=== PATIENT | female | born 1990 | race Caucasian/White ===

== ENCOUNTER 2017-02-16 05:30 | Inpatient (IN) ==
--- OUTSIDE RECORDS SUMMARY | 2017-02-16 05:38 | External Medical Summary ---
:1990 Author Organization eClinicalWorks Care Team Providers Name Role Phone Nia Fong Provider Role Unavailable Allergies No Known Allergies Problems No Known Problems Medications No Known Medications Results No Known Results Summary Purpose eClinicalWorks Submission
--- OUTSIDE RECORDS SUMMARY | 2017-02-16 05:38 | External Medical Summary | Referral Summary ---
:1990 Author Care Team Providers Name Role Phone Gayla Vaz Primary Care Physician Encounter [facility] [id number] Date(s): 08/18/14 - 08/18/14 Via [facility]ASMIN [place], [place] [facility] [address] [place]ao [place] [address] Discharge Diagnosis: Pelvic pain Discharge Disposition: Home or Self Care Attending Physician: Trupti Escoto APRN Admitting Physician: Trupti Escoto APRN Vital Signs Most recent to oldest [Reference Range]: 1 Temperature Tympanic [36.6-38.1 degC] 37.0 degC (08/18/14 11:36 AM) Peripheral Pulse Rate [60-100 bpm] 80 bpm (08/18/14 11:36 AM) Blood Pressure [90-140/60-90 mmHg] 118/70 mmHg (08/18/14 11:36 AM) Problem List Condition Effective Dates Status Health Status Informant ADD(Confirmed) Active Anxiety(Confirmed) Active Depression(Confirmed) Active Allergies, Adverse Reactions, Alerts No Known Medication Allergies Medications No Known Medications Results No data available for this section Immunizations Vaccine Date Refusal Reason influenza virus vaccine, live 02/03/13 Procedures No data available for this section Social History Social History Type Response Smoking Status Current every day smoker Assessment and Plan Extracted from: Title: Ambulatory Patient Education Author: Trupti Escoto APRN Date: Family Medicine Pelvic Pain, Female Female pelvic pain can be caused by many different things and start from a variety of places. Pelvic pain refers to pain that is located in the lower half of the abdomen and between your hips. The pain may occur over a short period of time (acute ) or may be reoccurring (chronic ) . The cause of pelvic pain may be related to disorders affecting the female reproductive organs (gynecologic ), but it may also be related to the bladder, kidney stones, an intestinal complication, or muscle or skeletal problems. Getting help right away for pelvic pain is important, especially if there has been severe, soumya p, or a sudden onset of unusual pain. It is also important to get help right away because some types of pelvic pain can be life threatening. CAUSES Below are only some of the causes of pelvic pain. The causes of pelvic pain can be in one of several categories. Gynecologic. Pelvic inflammatory disease. Sexually transmitted infection. Ovarian cyst or a twisted ovarian ligament (ovarian torsion ). Uterine lining that grows outside the uterus (endometriosis ). Fibroids, cysts, or tumors. Ovulation. . that occurs outside the uterus (ectopic ). Miscarriage. Labor. Abruption of the placenta or ruptured uterus. Infection. Uterine infection (endometritis ). Bladder infection. Diverticulitis. Miscarriage related to a uterine infection (septic ). Bladder. Inflammation of the bladder (cystitis ). Kidney stone(s). Gastrointenstinal. Constipation. Diverticulitis. Neurologic. Trauma. Feeling pelvic pain because of mental or emotional causes (psychosomatic ). Cancers of the bowel or pelvis. EVALUATION Your caregiver will want to take a careful history of your concerns. This includes recent changes in your health, a careful gynecologic history of your periods (menses ), and a sexual history. Obtaining your family history and medical history is also important. Your caregiver may suggest a pelvic exam. A pelvic exam will help identify the location and severity of the pain. It also helps in the evaluat ion of which organ system may be involved. In order to identify the cause of the pelvic pain and be properly treated, your caregiver may order tests. These tests may include: A test. Pelvic ultrasonography. An X-ray exam of the abdomen. A urinalysis or evaluation of vaginal discharge. Blood tests. HOME CARE INSTRUCTIONS Only take qxfb-lvn-nueovog or prescription medicines for pain, discomfort , or fever as directed by your caregiver. Rest as directed by your caregiver. Eat a balanced diet. Drink enough fluids to make your urine clear or pale yellow, or as directed. Avoid sexual intercourse if it causes pain. Apply warm or cold compresses to the lower abdomen depending on which one helps the pain. Avoid stressful situations. Keep a journal of your pelvic pain. Write down when it started, where the pain is located, and if there are things that seem to be associated with the pain, such as food or your menstrual cycle. Follow up with your caregiver as directed. SEEK MEDICAL CARE IF: Your medicine does not help your pain. You have abnormal vaginal discharge. SEEK IMMEDIATE MEDICAL CARE IF: You have heavy bleeding from the vagina. Your pelvic pain increases. You feel lightheaded or faint. You have chills. You have pain with urination or blood in your urine. You have uncontrolled diarrhea or vomiting. You have a fever or persistent symptoms for more than 3 days. You have a fever and your symptoms suddenly get worse. You are being physically or sexually abused. MAKE SURE YOU: Understand these instructions. Will watch your condition. Will get help if you are not doing well or get worse. Document Released: 03/20/2005 Document Revised: 10/22/2012 Document Reviewed: 08/12/2012 [facility] Patient Information 2014 [email or web address]. No follow up information was provided. Extracted from: Title: Office Visit Note Author: Trupti Escoto APRN Date: 08/18/14 Assessment/Plan Pelvic pain pelvic sono for further eval. Orders: US Transvaginal/Pelvic Limited
--- OUTSIDE RECORDS SUMMARY | 2017-02-16 05:38 | External Medical Summary ---
:1990 Author Organization eClinicalWorks Care Team Providers Name Role Phone Alvin An Provider Role Unavailable Allergies, Adverse Reactions, Alerts Substance Reaction Event Type N.K.D.A. Info Not Available Non Drug Allergy Problems Problem Type Condition Code Onset Dates Condition Status Assessment Encounter for dental examination and Z01.20 Active cleaning without abnormal findings Medications Medication Code System Code Instructions Start End Date Status Dosage Date Augmentin [facility] 34749-59 875-125 MG Jan 16, Jan 30, tablet 86-12 Orally Twice a 2015 2015 day Fluoxetine HCl [facility] 31276-76 20 MG Orally Jan 16, capsule 56-01 Once a day 2015 in the morning Procedures Procedure Coding System Code Date INTRAORL - CMPL SERIES CODE 15905 CPT-4 D0210 Jan 31, 2016 COMP ORAL EVALUATION - NEW/EST PT CPT-4 D0150 Jan 31, 2016 Results No Known Results Summary Purpose eClinicalWorks Submission
--- OUTSIDE RECORDS SUMMARY | 2017-02-16 05:38 | External Medical Summary | Continuity of Care Document ---
:1989 Author Organization [facility] Address [address] [place], [place] [id number] Phone Care Team Providers Name Role Phone [facility] Unavailable Unavailable Allergies, Adverse Reactions, Alerts Substance Reaction Severity Status No Known Drug Allergies Unknown Active Medications Medication Instructions Dosage Effective Dates Status Comments (start - stop) Vitamin take 1 tablet by Not Available - Active tablet oral route every day Problems Condition Effective Dates (start - stop) Clinical Status Supervision of other high risk - pregnancies, third trimester 28 weeks gestation of - Recurrent loss Recurrent loss Encounter for test, result - positive Encounter for test, result positive Nicotine dependence, cigarettes, uncomplicated Recurrent loss Pap Smear Screening, Cervix - Encounter for test, result - negative 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 Complete or unsp spontaneous without complication Supervision of other high risk - pregnancies, first trimester Preg care for patient w recurrent preg - loss, first trimester Previous Low Transverse - Pap Smear Screening, Cervix - 10 weeks gestation of - Supervision of other high risk - pregnancies, first trimester 13 weeks gestation of - Supervision of other high risk - pregnancies, first trimester Previous Low Transverse - 13 weeks gestation of - Supervision of other high risk - pregnancies, second trimester 20 weeks gestation of - Supervision of other high risk - pregnancies, second trimester Previous Low Transverse - 17 weeks gestation of - Supervision of other high risk - pregnancies, third trimester 31 weeks gestation of - Preg care for patient curtis recbety preg - loss, second trimester Previous Low Transverse - 20 weeks gestation of - Encounter for screening of - mother Previous Low Transverse - 24 weeks gestation of - Depression Active Anxiety Disorder Active Procedures Procedure Date OB Visit No Charge Glucose test Hemoglobin count, colorimetric Hematocrit blood count Venpnctr fngr/heel/ear stick routne Results Test Name Date and Time Measure Units Reference Range Abnormal Flag Comments Panel Description: Glucose [Mass/volume] in Serum or Plasma --1 hour post 50 g glucose PO GLUCOSE, GESTATIONAL 75 mg/dL <140 N Test performed at [email or web address] SCREEN (50G)-140 15:30:00 DIAGNOSTICS [id number] [place] [address]Ybpdbzay: SABRINA CLAYTON DO,MPH Panel Description: HEMOGLOBIN + HEMATOCRIT HEMOGLOBIN 15:30:00 11.6 g/dL 11.7-15.5 L HEMATOCRIT 15:30:00 34.6 % 35.0-45.0 L Test performed at [facility] [id number] [place] [address]Lawirddt: SABRINA CLAYTON DO,MPH Advance Directives Directive Yes / No Effective Date File Name Unknown Encounters Encounter Practice Location Reason(s) Diagnoses Date Provider Care Description For Visit Team Members Ashely Gao Supervision of [facility] other high risk 7-[address], pregnancies, third 7 Medical [address] Box [email or web address] weeks Center 1522, gestation of [place] Ortega, 120, [place], [place], [id number], [place], [place] [id number] tel: , [place]. [id number] tel: [phone] Ashely Gao Supervision of Lalo-2 [facility] other high risk 8-201 [place]. [facility] [place], pregnancies, third 7 Medical PO Box [email or web address] weeks Center 1522, gestation of [place] Ortega, 120, [place], [place], [id number], [place] [id number] tel:+ , [place]. tel: [phone] Ashely Gao Previous Low Amilcar-2 [facility] Transverse 9-201 [place]. 700 [facility] [place], [id number] weeks 7 Medical PO Box gestation of Center 1522, [place] Ortega, 120, [place], [place], [id number], [place], [place] [id number] tel: , [place]. tel: [phone] Ashely Gao Supervision of Amilcar-0 [facility] other high risk 1-201 [place]. 700 [facility] [place], pregnancies, second 7 Medical PO Box [id number] weeks Center 1522, gestation of [place] Ortega, 120, [place], [place], [id number], [place] [id number] tel:+ , [place]. tel: [phone] Ashely Gao Preg care for Amilcar-0 [facility] Ultrasound patient w recur 1-201 [place]. 700 [facility] [place], preg loss, second 7 Medical PO Box trimesterPrevious Center 1522, Low Transverse [place] Orte[place], [id number] weeks 120, [place], gestation of [place], , pregnancyEncounter [place], [place] for tel: screening of mother , [place]. tel: [phone] Ashely Gao Supervision of May-1 [facility] other high risk 1-201 [place]. 700 [facility] [place], pregnancies, second 7 Medical PO Box trimesterPrevious Center 1522, Low Transverse [place] Ortega, [id number] weeks 120, [place], gestation of [place], , [place] [id number] tel: , [place]. tel: [phone] Ashely Gao Supervision of Apr-1 [facility] other high risk 3-201 [place]. 700 [facility] [place], pregnancies, first 7 Medical PO Box [email or web address] weeks Center 1522, gestation of [place] Ortega, 120, [place], [place], [id number], [place], [place] [id number] tel: , [place]. tel: [phone] Ashely Gao Supervision of Apr-1 [facility] Ultrasound other high risk -201 [place]. 700 [facility], pregnancies, first 7 Medical PO Box trimesterPrevious Center 1522, Low Transverse [place] Ortega, C-[id number] weeks 120, [place], gestation of [place], , [place], [place] tel:+ , [place]. tel: [phone] Ashely Gao Supervision of Mar-2 [facility] other high risk - [place]. 700 [facility], pregnancies, first 7 Medical PO Box trimesterPreg care Center 1522, for patient w [place] Ortega, recurrent preg 120, [place], loss, first [place], , trimesterPrevious [place], [place] Low Transverse tel: C-SectionPap Smear , [place]. Screening, [id number] tel:+06-06 weeks gestation of [phone] [facility] [place] Secondary Mar-0 [facility] amenorrhea 9- [place]. 700 [facility], Medical PO Box [place] 1522, [place] Ortega, 120, [place], [place], [id number], [place] [id number] tel: , [place]. tel: [phone] Ashely Gao Secondary Feb-2 [facility] amenorrhea 3-201 [place]. 700 [facility], Medical PO Box Center 1522, [place] Orte[place], 120, [place], [place], [id number], [place], [place] [id number] tel: , [place]. tel: [phone] Ashely Gao Secondary Feb-1 [facility] amenorrhea 7-201 [place]. 700 [facility], Medical PO Box Center 1522, [place] Ortega, 120, [place], [place], [id number], [place], [place] [id number] tel: , [place]. tel: [phone] Ashely Gao Complete or unsp Sahil-1 [facility] spontaneous 3-201 [place]. 700 [facility] [place], without 7 Medical PO Box complication Center 1522, , [place] Damon, 120, [place], [place], [id number], [place] [id number] tel:+ , [place]. tel: [phone] [facility] [place] Recurrent May- [place] [facility] [place] loss 2-201 [place], 7 700 PO Box Medical 1522, Center [place], , [place], 120, [id number], [place], [place], tel:+ [phone] , [place]. tel: [phone] Ashely Gao Recurrent May- [place] [facility] lossRecurrent 1- [place]. [facility] [place], 7 700 PO Box lossEncounter for Medical 1522, test, [facility], result [place] Ortega, positiveEncounter 120, [id number], for test, [place], result positive [place], tel:[phone] , [place]. tel: [phone] [facility] Nicotine Mar- [facility] dependence, 2- [place]. 700 [facility] [place], cigarettes, 6 Medical PO Box uncomplicatedRecurr Center 1522, ent , [place] Damon, lossPap Smear 120, [place], Screening, [place], [id number], CervixEncounter for [place], [place] test, tel: result negative , [place]. tel: [phone] Family History Family Member Diagnosis Age At Onset Paternal Grandfather Cardiovascular Disease Father Cardiovascular Disease Immunizations Vaccine Date Status Comments Unknown Payers Payer name Insurance type Covered constitution party ID Authorization(s) Unknown Social History Type Description Quantity Date Captured Alcohol Use Details No Caffeine Use Details Unknown Tobacco Use Status Smoking Status Current every day smoker Vital Signs Date / Height Weight BMI Pulse Blood Temperature Respiratory Body Head BMI Time: Rate Pressure Rate Surface Circumference percentile Area 4 2:02 kg/m PM eter (2) 173.40 29.4 105/68 -2017 lbs 8 mm[Hg] 2:07 kg/m PM eter (2) Chief Complaint And Reason For Visit Unknown Chief Complaint And Reason For Visit Reason For Referral Reason For Referral Unknown Plan Of Care Date Type Action Status Goal Tobacco cessation counseling completed Goal Tobacco cessation counseling completed Appointment Pamella Grider BOOKED [place] Pamella [place] [facility] [place] Future Order: Lab Order Pap Smear With HPV Reflex If Ordered ASCUS ([id number]) Future Order: Radiology Order Nuchal Translucency ([id number]) Ordered Future Order: Radiology Order Complete OB Ultrasound > 14 Ordered Weeks ([id number]) Date Type Problem Goal Intervention Status Start Date Unknown. History Of Present Illness Encounter Date Complaint History Of Present Illness This patient has no known history of present illness Functional Status Encounter Date Functional Assessment Cognitive Assessment Unknown Medications Administered Medication Instructions Dosage Effective Dates (start - stop) Status Comments Drug Treatment Unknown Instructions Date Instruction Additional Information HIV and other routine tests risk factors identified by history anticipated course of care nutrition and weight gain counseling, special diet toxoplasmosis precautions (cats / raw meat) sexual activity exercise indications for ultrasound influenza vaccine environmental / work hazards travel tobacco (ask, advise, assess, assist and arrange) use of any medications (including supplements, vitamins, herbs, OTC drugs) smoking counseling domestic violence seat belt use childbirth classes / hospital facilities hospital registration genetic testing
--- OUTSIDE RECORDS SUMMARY | 2017-02-16 05:38 | External Medical Summary | Continuity of Care Document ---
:1989 Author Organization [facility] Address [address] [place], [place] [id number] Phone Care Team Providers Name Role Phone [facility] Unavailable Unavailable Allergies, Adverse Reactions, Alerts Substance Reaction Severity Status No Known Drug Allergies Unknown Active Medications Medication Instructions Dosage Effective Dates Status Comments (start - stop) Vitamin take 1 tablet by Not Available - Active tablet oral route every day Problems Condition Effective Dates (start - stop) Clinical Status Previous Low Transverse - 24 weeks gestation of - Recurrent loss Recurrent [...] first trimester 13 weeks gestation of - Previous Low Transverse - Supervision of other high risk - pregnancies, first trimester 13 weeks gestation of - Supervision of other high risk - pregnancies, second trimester 17 weeks gestation of - Previous Low Transverse - Supervision of other high risk - pregnancies, second trimester 20 weeks gestation of - Previous Low Transverse - 20 weeks gestation of - Preg care for patient w recur preg - loss, second trimester Encounter for screening of - mother Depression Active Anxiety Disorder Active Procedures Procedure Date OB Visit No Charge Results Test Name Date and Time Measure Units Reference Range Abnormal Flag Comments Unknown Advance Directives Directive Yes / No Effective Date File Name Unknown Encounters Encounter Practice Location Reason(s) Diagnoses Date Provider Care Description For Visit Team Members Ashely Gao Previous Low Amilcar-2 [facility] Transverse 9-201 [place]. 700 [facility] [place], [id number] weeks 7 Medical PO Box gestation of [place] 1522, [place]te[place], 120, [place], [place], [id number], [place], [place] [id number] tel:[phone] , [place]. tel:[phone] Ashely Gao Supervision of Amilcar-0 [facility] other high risk 1-201 [place]. 700 [facility] [place], pregnancies, second 7 Medical PO Box [id number] weeks Center 1522, gestation of [place] Ortega, 120, [place], [place], [id number], [place], [place] [id number] tel:[phone] , [place]. tel: [phone] Ashely aGo Previous Low Amilcar-0 [facility] Ultrasound Transverse 1-201 [place]. 700 [facility] [place], C-[id number] weeks 7 Medical PO Box gestation of [place] 1522, pregnancyPreg care [place] Orte[place], for patient w recur 120, [place], preg loss, second [place], , trimesterEncounter [place], [place] for tel:+[phone] screening of mother , [place]. tel:[phone] Ashely Gao Supervision of September- [facility] other high risk 1-201 [place]. 700 [facility], pregnancies, second 7 Medical PO Box [email or web address] weeks Center 1522, gestation of [place] Ortega, pregnancyPrevious 120, [place], Low Transverse [place], [id number], [place], [place] [id number] tel:[phone] , [place]. tel: [phone] Ashely Gao Supervision of Apr-1 [facility] other high risk 3-201 [place]. 700 [facility], pregnancies, first 7 Medical PO Box [id number] weeks Center 1522, gestation of [place] Ortega, 120, [place], [place], [id number], [place], [place] [id number] tel: , . tel: [phone] Ashely Gao Supervision of Apr-1 [facility] Ultrasound other high risk 3-201 [place]. 700 [facility], pregnancies, first 7 Medical PO Box [id number] weeks Center 1522, gestation of [place] Ortega, pregnancyPrevious 120, [place], Low Transverse [place], , [place], [place] [id number] tel: , . tel: [phone] Ashely Gao Supervision of Mar-2 [facility] other high risk 3-201 [place]. 700 [facility], pregnancies, first 7 Medical PO Box trimesterPreg care Center 1522, for patient w [place] Ortega, recurrent preg 120, [place], loss, first [place], , trimesterPrevious [place], [place] Low Transverse [id number] tel: C-SectionPap Smear , [place]. Screening, [id number] tel: weeks gestation of [phone] [facility] [place] Secondary Mar-0 [facility] amenorrhea 9-201 [place]. 700 [facility], Medical PO Box Center 1522, [place] Orte[place], 120, [place], [place], [id number], [place], [place] [id number] tel: , . tel: [phone] [facility] [place] Secondary Feb-2 [facility] amenorrhea 3-201 [place]. 700 [facility], Medical PO Box Center 1522, [place] Ortega, 120, [place], [place], [id number], [place], [place] [id number] tel: , . tel: [phone] [facility] [place] Secondary Feb-1 [facility] amenorrhea 7-201 [place]. 700 [facility], Medical PO Box Center 1522, Dr, [place] Damon, 120, [place], [place], [id number], [place], [place] [id number] tel: , [place]. tel: [phone] [facility] Complete or unsp May-1 [facility] spontaneous 3-201 [place]. 700 [facility] [place], without 7 Medical PO Box complication Center 1522, , [place] Damon, 120, [place], [place], [id number], [place], [place] [id number] tel:+ , [place]. tel: [phone] [facility] Recurrent Sahil-1 [place] loss 2-201 [place]. [facility] [place], 7 700 PO Box Medical 1522, Center Dr Marisol, [place] HERNANDE[place], 120, [id number], [place], [place], tel:[phone] , [place]. tel: [phone] Ashely Gao Recurrent May- [place] In Womens lossRecurrent 1-201 [place]. [facility] [place], 7 700 PO Box lossEncounter for Medical 1522, [facility] [place], positiveEncounter 120, [id number], for test, [place], result positive [place], tel:[phone] , [place]. tel: [phone] [facility] [place] Nicotine Nov-2 [facility] dependence, 2-201 [place]. 700 [facility] [place], cigarettes, 6 Medical PO Box uncomplicatedRecurr Center 1522, ent [place] Ortega, lossPap Smear 120, [place], Screening, [place], [id number], CervixEncounter for [place], [place] test, [id number] tel: result negative , [place]. tel: [phone] Family History Family Member Diagnosis Age At Onset Paternal Grandfather Cardiovascular Disease Father Cardiovascular Disease Immunizations Vaccine Date Status Comments Unknown Payers Payer name Insurance type Covered libertarian ID Authorization(s) [employer] [place] - Medicaid MC [id number] Social History Type Description Quantity Date Captured Alcohol Use Details No Caffeine Use Details Unknown Tobacco Use Status Smoking Status Current every day smoker Vital Signs Date / Height Weight BMI Pulse Blood Temperature Respiratory Body Head BMI Time: Rate Pressure Rate Surface Circumference percentile Area 169.00 28.7 110/69 2017 lbs 4 mm[Hg] 2:35 kg/m PM eter (2) Chief Complaint And Reason For Visit Unknown Chief Complaint And Reason For Visit Reason For Referral Reason For Referral Unknown Plan Of Care Date Type Action Status Goal Tobacco cessation counseling completed Goal Tobacco cessation counseling completed Appointment Pamella Grider BOOKED Future Order: Lab Order Pap Smear With HPV Reflex If Ordered ASCUS ([id number]) Future Order: Radiology Order Nuchal Translucency ([id number]) Ordered Future Order: Radiology Order Complete OB Ultrasound > 14 Ordered Weeks ([id number]) Date Type Problem Goal Intervention Status Start [...]
--- OUTSIDE RECORDS SUMMARY | 2017-02-16 05:39 | External Medical Summary ---
:1990 Author Organization eClinicalWorks Care Team Providers Name Role Phone Hetal, Nia Provider Role Unavailable Allergies, Adverse Reactions, Alerts Substance Reaction Event Type N.K.D.A. Info Not Available Non Drug Allergy Problems Problem Type Condition Code Onset Dates Condition Status Assessment Positive test Z32.01 Active Assessment Spotting N92.0 Active Assessment Dysmenorrhea N94.6 Active Assessment Breast lump N63 Active Medications Medication Code System Code Instructions Start Date End Date Status Dosage [facility] [address]5214-860 Orally daily not defined Vitamins Plus 6-01 Procedures Procedure Coding System Code Date OFFICE VISIT, LONG LINE TEAMSTER-LOW COMPLEXITY (30 MIN.) CPT-4 93729 Dec 09, 2015 TEST, IN HOUSE CPT-4 88880 Dec 09, 2015 Vital Signs Date/Time: Dec 09, 2015 Temperature 99.0 F Height 63 in Weight 130 lbs Blood Pressure Diastolic 64 mm Hg Blood Pressure Systolic 102 mm Hg Cardiac Monitoring Heart Rate 70 /min BMI 23.03 Index Oximetry 98 % Respiratory Rate 16 /min Results No Known Results Summary Purpose eClinicalWorks Submission
--- OUTSIDE RECORDS SUMMARY | 2017-02-16 05:39 | External Medical Summary | Continuity of Care Document ---
:1989 Author Organization [facility] Address [address] [place], [place] [id number] Phone Care Team Providers Name Role Phone [facility] Unavailable Unavailable Allergies, Adverse Reactions, Alerts Substance Reaction Severity Status No Known Drug Allergies Unknown Active Medications Medication Instructions Dosage Effective Dates Status Comments (start - stop) Vitamin take 1 tablet by Not Available - Active tablet oral route every day Problems Condition Effective Dates (start - stop) Clinical Status Recurrent loss Recurrent loss Encounter for test, [...] third trimester 28 weeks gestation of - Preg care for patient w recur preg - loss, second trimester Previous Low Transverse - 20 weeks gestation of - Encounter for screening of - mother Previous Low Transverse - 24 weeks gestation of - Depression Active Anxiety Disorder Active Procedures Procedure Date Unknown Results Test Name Date and Time Measure Units Reference Range Abnormal Flag Comments Unknown Advance Directives Directive Yes / No Effective Date File Name Unknown Encounters Encounter Practice Location Reason(s) Diagnoses Date Provider Care Description For Visit Team Members Ashely Gao Supervision of Lalo-2 Gilles In Womens other high risk 8-201 [place]. 700 [facility] [place], pregnancies, third 7 Medical PO Box [id number] weeks Center 1522, gestation of Raymond Ortega, 120, [place], [place], , [place], [place] [id number] tel:+ , [place]. tel: [phone] Ashely Gao Lalo-2 Gilles In Womens 3-201 [place]. 700 [facility], 7 Medical PO Box Center 1522, Raymond Ortega, 120, [place], [place], , [place], [place] [id number] tel:+ , [place]. tel:[phone] Ashely Gao Previous Low Amilcar-2 Gilles In Womens Transverse 9-201 [place]. 700 [facility], [id number] weeks 7 Medical PO Box gestation of Center 1522, Raymond Ortega, 120, [place], [place], [id number], [place], [place] [id number] tel:+2 , [place]. tel:[phone] Ashely Gao Supervision of Amilcar-0 Gilles In Womens other high risk 1-201 [place]. 700 [facility] [place], pregnancies, second 7 Medical PO Box [id number] weeks Center 1522, gestation of Raymond Ortega, 120, [place], [place], , [place], [place] [id number] tel:+ , [place]. tel:[phone] Ashely Gao Preg care for Amilcar-0 Gilles In Womens Ultrasound patient w recur 1-201 [place]. 700 [facility] [place], preg loss, second 7 Medical PO Box trimesterPrevious Center 1522, Low Transverse Raymond Ortega, [id number] weeks 120, [place], gestation of [place], , pregnancyEncounter [place], [place] for [id number] tel:[phone] screening of mother , [place]. tel:[phone] Ashely Gao Supervision of May-1 Gilles In Womens other high risk 1-201 [place]. 700 [facility] [place], pregnancies, second 7 Medical PO Box trimesterPrevious Center 1522, Low Transverse Raymond Ortega, C-[id number] weeks 120, [place], gestation of [place], , [place], [place] [id number] tel:+[phone] , [place]. tel:[phone] Ashely Gao Supervision of Apr-1 Gilles In Womens other high risk 3-201 [place]. 700 [facility] [place], pregnancies, first 7 Medical PO Box [id number] weeks Center 1522, gestation of Raymond Ortega, 120, [place], [place], [id number], [place] [id number] tel:+ , [place]. tel:[phone] Ashely Gao Supervision of Apr-1 Gilles In Womens Ultrasound other high risk 3-201 [place]. 700 [facility] [place], pregnancies, first 7 Medical PO Box trimesterPrevious Center 1522, Low Transverse Raymond Ortega, C-[id number] weeks 120, [place], gestation of [place], , [place] [id number] tel:[phone] , [place]. tel: [phone] Ashely Gao Supervision of Mar-2 Gilles In Womens other high risk 3-201 [place]. 700 [facility] [place], pregnancies, first 7 Medical PO Box trimesterPreg care Center 1522, for patient w Raymond Ortega, recurrent preg 120, [place], loss, first [place], , trimesterPrevious [place], [place] Low Transverse [id number] tel:[phone] C-SectionPap Smear , [place]. Screening, [id number] tel:+31 weeks gestation of [phone] [facility] [place] Secondary Mar-0 Gilles In Womens amenorrhea 9-201 [place]. 700 [facility] [place], 7 Medical PO Box Center 1522, , Raymond Damon, 120, [place], [place], , [place], [place] tel:+ , [place]. tel: [phone] [facility] [place] Secondary Feb-2 Gilles In Womens amenorrhea 3-201 [place]. 700 [facility] [place], 7 Medical PO Box Center 1522, , Raymond Damon, 120, [place], [place], , [place], [place] tel:+ , [place]. tel: [phone] [facility] [place] Secondary Feb-1 Gilles In Womens amenorrhea 7-201 [place]. 700 [facility] [place], 7 Medical PO Box Center 1522, , Raymond Damon, 120, [place], [place], , [place], [place] tel: , [place]. tel: [phone] [facility] [place] Complete or unsp Sahil-1 Gilles In Womens spontaneous 3-201 [place]. 700 [facility] [place], without 7 Medical PO Box complication Center 1522, , Raymond Damon, 120, [place], [place], , [place], [place] tel: , [place]. tel: [phone] [facility] [place] Recurrent Sahil-1 [place] In Womens loss 2-201 [place]. [facility] [place], 7 700 PO Box Medical 1522, [address], Raymond HERNANDEZ, 120, , [place], [place], tel:[phone] , [place]. tel: [phone] [facility] [place] Recurrent Sahil-1 [place] In Womens lossRecurrent 1-201 [place]. [facility] [place], 7 700 PO Box lossEncounter for Medical 1522, test, Betty Damon, result , Raymond HERNANDEZ, positiveEncounter 120, , for test, [facility] result positive [place], tel:[phone] , [place]. tel: [phone] [facility] [place] Nicotine Nov-2 Gilles In Womens dependence, 2-201 [place]. 700 [facility] [place], cigarettes, 6 Medical PO [facility], ent Raymond Ortega, lossPap Smear 120, [place], Screening, [place], [id number], CervixEncounter for [place], [place] test, [id number] tel:+8 result negative , [place]. [id number] tel: [phone] Family History Family Member Diagnosis Age At Onset Paternal Grandfather Cardiovascular Disease Father Cardiovascular Disease Immunizations Vaccine Date Status Comments Unknown Payers Payer name Insurance type Covered republican ID Authorization(s) Unknown Social History Type Description Quantity Date Captured Unknown Vital Signs Date / Height Weight BMI Pulse Blood Temperature Respiratory Body Head BMI Time: Rate Pressure Rate Surface Circumference percentile Area Unknown Chief Complaint And Reason For Visit Unknown Chief Complaint And Reason For Visit Reason For Referral Reason For Referral Unknown Plan Of Care Date Type Action Status Goal Tobacco cessation counseling completed Goal Tobacco cessation counseling completed Appointment Pamella Grider BOOKED Future Order: Lab Order Pap Smear With HPV Reflex If Ordered ASCUS ([id number]) Future Order: Radiology Order Nuchal Translucency ([id number]) Ordered Future Order: Radiology Order Complete OB Ultrasound > 14 Ordered Weeks (30092) Date Type Problem Goal Intervention Status Start [...]
--- OUTSIDE RECORDS SUMMARY | 2017-02-16 05:39 | External Medical Summary ---
:1990 Author Organization eClinicalWorks Care Team Providers Name Role Phone Mindy Vizcaino Provider Role Unavailable Allergies No Known Allergies Problems Problem Type Condition Code Onset Dates Condition Status Assessment Missed period N92.6 Active Medications Medication Code System Code Instructions Start End Date Status Dosage Date Fluoxetine HCl [facility] 67068-43 20 MG Orally Jan 16 capsule 56-01 Once a day 2016 in the morning [facility] 24458-82 Orally daily not defined Vitamins Plus 16-01 Procedures Procedure Coding System Code Date HCG QUANTITATIVE CPT-4 41615 Feb 11, 2016 Results No Known Results Summary Purpose eClinicalWorks Submission
--- OUTSIDE RECORDS SUMMARY | 2017-02-16 05:39 | External Medical Summary | Referral Summary ---
:1989 Author Organization [facility] [place] [address] Care Team Providers Name Role Phone No PCP, States Primary Care Physician Encounter VC Date(s): 11/29/15 - 11/29/15 [facility] [place] [place] [id number] [place] Discharge Diagnosis: Hematoma of abdominal wall Discharge Disposition: 01-Home or Self Care Attending Physician: Shahab Helm MD Admitting Physician: Shahab Helm MD Vital Signs Most recent to oldest [Reference Range]: 1 Temperature Tympanic [36.6-38.1 degC] 36.9 degC (11/29/15 3:06 PM) Peripheral Pulse Rate [60-100 bpm] 88 bpm (11/29/15 3:06 PM) Blood Pressure [90-140/60-90 mmHg] 100/68 mmHg (11/29/15 3:06 PM) Problem List Condition Effective Dates Status Health Status Informant ADD(Confirmed) Active Anxiety(Confirmed) Active Depression(Confirmed) Active Current smoker(Confirmed) Active Allergies, Adverse Reactions, Alerts No Known Medication Allergies Medications CeleXA 40 mg oral tablet 40 mg 1 tabs, Oral, Daily, # 60 tabs, 0 Refill(s), Pharmacy: [facility], 1 tabs Oral Daily Start Date: 07/23/15 Status: Ordered Results Chemistry Most recent to oldest [Reference Range]: 1 U Beta hCG Ql Negative (11/29/15 12:00 AM) Immunizations Vaccine Date Refusal Reason influenza virus vaccine, live 02/03/13 Procedures No data available for this section Social History Social History Type Response Smoking Status Current every day smoker Assessment and Plan Extracted from: Title: Office Visit Note Author: Shahab Helm MD Date: 11/29/15 Assessment/Plan 1.Hematoma of abdominal wall Reassurance. No specific treatment needed. If it's helpful she may put some heat on the area. I toldher that the soreness should be gone in a week she may have a lump thatpersists for 3-4 weeks or even a longer periodif she has worsening pain or further problems she'll let us now. Ordered: Office Visit Level 3 Est 70885 Her request be to do a urine hCG test.
--- OUTSIDE RECORDS SUMMARY | 2017-02-16 05:39 | External Medical Summary ---
:1989 Author Organization eClinicalWorks Care Team Providers Name Role Phone Mindy Vizcaino Provider Role Unavailable Allergies, Adverse Reactions, Alerts Substance Reaction Event Type N.K.D.A. Info Not Available Non Drug Allergy Problems Problem Type Condition Code Onset Dates Condition Status Assessment Missed period N92.6 Active Assessment Encounter for test, result Z32.00 Active unknown Assessment Encounter for other general Z30.09 Active counseling and advice on contraception Medications Medication Code System Code Instructions Start End Date Status Dosage Date NDC 20747-21 Orally daily not defined Vitamins Plus 16-01 Fluoxetine HCl [facility] 63301-29 20 MG Orally Jan 12 capsule 56-01 Once a day 2015 in the morning Procedures Procedure Coding System Code Date OFFICE VISIT, EST-LOW COMPLEXITY (15 MIN.) CPT-4 46019 Feb 11, 2016 TEST, IN HOUSE CPT-4 61574 Feb 11, 2016 Vital Signs Date/Time: Feb 11, 2016 Temperature 98.7 F Height 63 in Weight 128 lbs Blood Pressure Diastolic 58 mm Hg Blood Pressure Systolic 102 mm Hg Cardiac Monitoring Heart Rate 90 /min BMI 22.67 Index Respiratory Rate 18 /min Results Name Result Date Reference Range Unit Abnormality Flag In House Test, Urine ---- Test, Urine negative [id number] Summary Purpose eClinicalWorks Submission
--- OUTSIDE RECORDS SUMMARY | 2017-02-16 05:39 | External Medical Summary | Continuity of Care Document ---
:1989 Author Organization [facility] [facility] Address [address] [place], [place] [id number] Phone Care Team Providers Name Role Phone [facility] Unavailable Unavailable Allergies, Adverse Reactions, Alerts Substance [...] loss Complete or unsp spontaneous without complication Preg care for patient w recurrent preg - loss, first trimester Supervision of other high risk - pregnancies, first trimester Previous Low Transverse - Pap [...] gestation of - Previous Low Transverse - Preg care for patient w recur preg - loss, second trimester Previous Low Transverse - 20 weeks gestation of - Encounter for screening of - mother Supervision of other high risk - pregnancies, second trimester 20 weeks gestation of - Supervision of other high risk - pregnancies, third trimester 28 weeks gestation of - Supervision of other high risk - pregnancies, third trimester 31 weeks gestation of - Previous Low Transverse - 24 weeks gestation of - Depression Active Anxiety Disorder Active Procedures Procedure Date Unknown Results Test Name Date and Time Measure Units Reference Range Abnormal Flag Comments Unknown Advance Directives Directive Yes / No Effective Date File Name Unknown Encounters Encounter Practice Location Reason(s) Diagnoses Date Provider Care Description For Visit Team Members Ashely Gao Supervision of Dec-1 Gilles In Womens other high risk 7-[address] [place]. 700 [facility] [place], pregnancies, third 7 Medical PO Box [id number] weeks Center 1522, gestation of Raymond Ortega, 120, [place], [place], [id number], [place], [place] [id number] tel:+ , [place]. tel: [phone] Ashely Gao Aug-0 Gilles In Womens 7-201 [place]. 700 [facility] [place], 7 Medical PO Box Center 1522, Raymond Ortega, 120, [place], [place], [id number], [place], [place] [id number] tel: , [place]. tel: [phone] Ashely Gao Supervision of Lalo-2 Gilles In Womens other high risk 8-201 [place]. 700 [facility] [place], pregnancies, third 7 Medical PO Box [id number] weeks Center 1522, gestation of Raymond Ortega, 120, [place], [place], [id number], [place], [place] [id number] tel: , [place]. tel: [phone] Ashely Gao Previous Low Amilcar-2 Gilles In Womens Transverse 9-201 [place]. 700 [facility] [place], [id number] weeks 7 Medical PO Box gestation of Center 1522, Raymond Ortega, 120, [place], [place], [id number], [place], [place] [id number] tel:+ , . tel: [phone] Ashely Gao Supervision of Amilcar-0 Gilles In Womens other high risk 1-201 [place]. 700 [facility] [place], pregnancies, second 7 Medical PO Box [id number] weeks Center 1522, gestation of Raymond Ortega, 120, [place], [place], [id number], [place], [place] [id number] tel: , . tel: [phone] Ashely Gao Preg care for Amilcar-0 Gilles In Womens Ultrasound patient w recur 1-201 [place]. 700 [facility] [place], preg loss, second 7 Medical PO Box trimesterPrevious Center 1522, Low Transverse Raymond Ortega, C-[id number] weeks 120, [place], gestation of [place], [id number], pregnancyEncounter [place], [place] for tel: screening of mother , [place]. tel: [phone] Ashely Gao Supervision of May-1 Gilles In Womens other high risk 1-201 [place]. 700 [facility] [place], pregnancies, second 7 Medical PO Box weeks Center 1522, gestation of Raymond Ortega, pregnancyPrevious 120, [place], Low Transverse [place], [id number], [place], [place] tel: , . tel: [phone] Ashely Gao Supervision of Apr-1 Gilles In Womens other high risk 3-201 [place]. 700 [facility] [place], pregnancies, first 7 Medical PO Box [id number] weeks Center 1522, gestation of Raymond Ortega, 120, [place], [place], [id number], [place], [place] [id number] tel: , . tel: [phone] Ashely Gao Supervision of Apr-1 Gilles In Womens Ultrasound other high risk 3-201 [place]. 700 [facility] [place], pregnancies, first 7 Medical PO Box [id number] weeks Center 1522, gestation of Raymond Ortega, pregnancyPrevious 120, [place], Low Transverse [place], [id number], [place], [place] tel: , . tel: [phone] Ashely Gao Preg care for Mar-2 Gilles In Womens patient w recurrent - [place]. 700 [facility] [place], preg loss, first 7 Medical PO Box trimesterSupervisio Center 1522, n of other high , Raymond Damon, risk pregnancies, 120, [place], first [place], , trimesterPrevious [place], [place] Low Transverse [id number] tel: C-SectionPap Smear , [place]. Screening, [id number] tel: weeks gestation of [phone] [facility] [place] Secondary Mar-0 Gilles In Womens amenorrhea 9- [place]. 700 [facility], 7 Medical PO Box Center 1522, , Raymond Damon, 120, [place], [place], [id number], [place], [place] [id number] tel: , [place]. tel: [phone] [facility] [place] Secondary Feb-2 Gilles In Womens amenorrhea 3- [place]. 700 [facility], 7 Medical PO Box Center 1522, Raymond Ortega, 120, [place], [place], [id number], [place], [place] [id number] tel: , [place]. tel: [phone] [facility] [place] Secondary Feb-1 Gilles In Womens amenorrhea 7- [place]. 700 [facility], 7 Medical PO Box Center 1522, , Raymond Damon, 120, [place], [place], [id number], [place], [place] [id number] tel: , [place]. tel: [phone] [facility] [place] Complete or unsp May- Gilles In Womens spontaneous 3- [place]. 700 [facility] [place], without 7 Medical PO Box complication Center 1522, Raymond Ortega, 120, [place], [place], [id number], [place], [place] [id number] tel: , [place]. tel: [phone] [facility] [place] Recurrent Sahil- [place] In Womens loss 2-201 [place]. [facility] [place], 7 700 PO Box Medical [facility], [address], Raymond HERNANDEZ, 120, [id number], [place], [place], tel:901 , [place]. tel: [phone] Ashely Gao Recurrent [place] In Womens lossRecurrent 1-201 [place]. [facility] [place], 7 700 PO Box lossEncounter for Medical 1522, [facility] result Raymond Ortega, positiveEncounter 120, [id number], for test, [place] result positive [place], tel: [phone] , [place]. tel: [phone] Ashely Gao Nicotine Gilles In Womens dependence, 2-201 [place]. 700 [facility] [place], cigarettes, 6 Medical PO Box uncomplicatedRecurr Center 1522, ent Raymond Ortega, lossPap Smear 120, [place], Screening, [place], [id number], CervixEncounter for [place], [place] test, [id number] tel: result negative , [place]. tel: [phone] Family History Family Member Diagnosis Age At Onset Paternal Grandfather Cardiovascular Disease Father Cardiovascular Disease Immunizations Vaccine Date Status Comments Unknown Payers Payer name Insurance type Covered libertarian ID Authorization(s) Unknown Social History Type Description [...] Pamella Grider BOOKED Appointment Pamella Grider - [facility] [place] - BOOKED RC/S, PPTL Future Order: Lab Order Pap Smear With HPV Reflex If Ordered ASCUS (WPMPap1) Future Order: Radiology Order Nuchal Translucency ([id number]) Ordered Future Order: Radiology Order Complete OB Ultrasound > 14 Ordered Weeks ([id number]) Date Type Problem Goal Intervention Status Start [...]
--- OUTSIDE RECORDS SUMMARY | 2017-02-16 05:39 | External Medical Summary | Continuity of Care Document ---
:1990 Author Organization [facility] Address [address] [place], [place] [id number] Phone Care Team Providers Name Role Phone [facility] Unavailable Unavailable Allergies, Adverse Reactions, Alerts Substance Reaction Severity Status No Known Drug Allergies Unknown Active Medications Medication Instructions Dosage Effective Dates Status Comments (start - stop) Vitamin take 1 tablet by Not Available - Active tablet oral route every day Problems Condition Effective Dates (start - stop) Clinical Status Supervision of other high risk - pregnancies, third trimester 33 weeks gestation of - Recurrent loss Recurrent loss Encounter for test, result - positive Encounter for test, result positive Nicotine dependence, cigarettes, uncomplicated Recurrent loss Pap Smear Screening, Cervix - Encounter for test, result - negative 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 Complete or unsp spontaneous without complication Supervision of other high risk - pregnancies, first trimester Previous Low Transverse - Preg care for patient w recurrent preg - loss, first trimester Pap Smear Screening, Cervix - 10 weeks [...] trimester Encounter for screening of - mother 20 weeks gestation of - Previous Low Transverse - 24 weeks gestation of - Supervision of other high risk - pregnancies, third trimester 28 weeks gestation of - Supervision of other high risk - pregnancies, third trimester 35 weeks gestation of - Depression Active Anxiety Disorder Active Procedures Procedure Date OB Visit No Charge Results Test Name Date and Time Measure Units Reference Range Abnormal Flag Comments Unknown Advance Directives Directive Yes / No Effective Date File Name Unknown Encounters Encounter Practice Location Reason(s) Diagnoses Date Provider Care Team Description For Visit Members Ashely Gao Supervision of Sep-1 Gilles Referring In Womens other high risk 4-201 Maur[place]. 700 Provider: Health [place], pregnancies, 7 Medical Mauri PO Box third [id number] Center Gilles R, 1522, weeks gestation Raymond Ortega, of 120, Medical [facility] [id number] [place] [address], [id number] [place], tel: , . [place], tel: [phone]. [id number] tel:[phone] Ashely Gao Supervision of Aug-3 Gilles In Womens other high risk 1-201 Mauri. 700 Health [place], pregnancies, 7 Medical PO Box third [id number] Center 1522, weeks gestation Raymond Ortega, of 120, [place] [id number], [place], [id number] tel: , . tel: [phone] Ashely Gao Supervision of Aug-1 Gilles In Womens other high risk 7-201 Mauri. 700 Health [place], pregnancies, 7 Medical PO Box third [id number] Center 1522, weeks gestation Raymond Ortega, of 120, [place], [place], [id number], [place], [place] [id number] tel: , [place]. tel: [phone] Ashely Gao Supervision of Lalo-2 Gilles In Womens other high risk 8-201 [place]. 700 Health [place], pregnancies, 7 Medical PO Box third Center 1522, weeks gestation Raymond Ortega, of 120, [place], [place], [id number], [place], [place] [id number] tel:+ , [place]. tel: [phone] Ashely Gao Previous Low Amilcar-2 Gilles In Womens Transverse 9-201 [place]. 700 Health [place], [id number] weeks 7 Medical PO Box gestation of Center 1522, Raymond Ortega, 120, [place], [place], [id number], [place], [place] [id number] tel:+ , [place]. tel: [phone] Ashely Gao Supervision of Amilcar-0 Gilles In Womens other high risk 1-201 [place]. 700 Health [place], pregnancies, 7 Medical PO Box second Center 1522, [id number] weeks Raymond Ortega, gestation of 120, [place], [place], , [place], [place] tel: , [place]. tel: [phone] Ashely Gao Previous Low Amilcar-0 Gilles In Womens Ultrasound Transverse 1-201 [place]. 700 Health [place], C-SectionPreg 7 Medical PO Box care for patient Center 1522, w recur preg Raymond Ortega, loss, second 120, [place], trimesterEncounte [place], , r for [place], [place] screening of [id number] tel: [id number] weeks , [place]. gestation of tel: [phone] Ashely Gao Supervision of May-1 Gilles In Womens other high risk 1-201 [place]. 700 Health [place], pregnancies, 7 Medical PO Box second Center 1522, trimesterPrevious Raymond Ortega, Low Transverse 120, [place], [id number] weeks [place], , gestation of [place] [id number] tel: , [place]. tel:[phone] Ashely Gao Supervision of Apr-1 Gilles In Womens other high risk 3-201 [place]. 700 Health [place], pregnancies, 7 Medical PO Box first [id number] Center 1522, weeks gestation Raymond Ortega, of 120, [place], [place], [id number], [place], [place] [id number] tel: , . tel: [phone] Ashely Gao Supervision of Apr-1 Gilles In Womens Ultrasound other high risk 3-201 [place]. 700 Health [place], pregnancies, 7 Medical PO Box first Center 1522, trimesterPrevious Raymond Ortega, Low Transverse 120, [place], [id number] weeks [place], , gestation of [place], [place] tel: , . tel: [phone] Ashely Gao Supervision of Mar-2 Gilles In Womens other high risk 3-201 [place]. 700 Health [place], pregnancies, 7 Medical PO Box first Center 1522, trimesterPrevious Raymond Ortega, Low Transverse 120, [place], C-SectionPreg [place], , care for patient [place], w recurrent preg tel: loss, first , [place]. trimesterPap tel: Smear Screening, [phone] [id number] weeks gestation of [facility] [place] Secondary Mar-0 Gilles In Womens amenorrhea 9-201 [place]. 700 [facility], Medical PO Box Center 1522, Raymond Ortega, 120, [place], [place], , [place], [place] [id number] tel: , . tel: [phone] Ashely Gao Secondary Feb-2 Gilles In Womens amenorrhea 3-201 [place]. 700 [facility] hospital, Medical PO Box Center 1522, Raymond Ortega, 120, [place], [place], , [place], [place] [id number] tel: , . tel: [phone] Ashely Gao Secondary Feb-1 Gilles In Womens amenorrhea 7-201 [place]. 700 Critical access hospital, Medical PO Box Center 1522, Raymond Ortega, 120, [place], [place], [id number], [place], [place] [id number] tel: , [place]. tel: [phone] [facility] [place] Complete or unsp May-1 Gilles In Womens spontaneous 3-201 [place]. 700 Health [place], without 7 Medical PO Box complication Center 1522, , Raymond Damon, 120, [place], [place], [id number], [place], [place] [id number] tel: , [place]. tel: [phone] Ashely Gao Recurrent Sahil-1 [place] In Womens loss 2-201 [place]oxy. Health [place], 7 700 PO Box Medical 1522, [place], , Raymond HERNANDEZ, 120, [id number], [place], [place], tel: , [place]. tel: [phone] Ashely Gao Recurrent May- Mendiola In Womens 1-201 Roxy. Health [place], lossRecurrent 7 700 PO Box Medical 1522, lossEncounter for Center [place], test, Raymond Ortega, result 120, , positiveEncounter [place], for [place], tel: test, result positive , [place]. tel: [phone] Ashely Gao Nicotine Nov-2 Gilles In Womens dependence, 2-201 [place]. 700 Health [place], cigarettes, 6 Medical PO Box uncomplicatedRecu Center 1522, rrent , Raymond Damno, lossPap Smear 120, [place], Screening, [place], [id number], CervixEncounter [place], [place] for tel: test, result , [place]. negative tel: [phone] Family History Family Member Diagnosis Age At Onset Paternal Grandfather Cardiovascular Disease Father Cardiovascular Disease Immunizations Vaccine Date Status Comments Tdap completed Source: New Immunization Record Payers Payer name Insurance type Covered libertarian ID Authorization(s) Unknown Social History Type Description Quantity Date Captured Alcohol Use Details No Caffeine Use Details Unknown Tobacco Use Status Smoking Status Current every day smoker Vital Signs Date / Height Weight BMI Pulse Blood Temperature Respiratory Body Head BMI Time: Rate Pressure Rate Surface Circumference percentile Area 179.70 30.5 111/65 2017 lbs 5 mm[Hg] 1:41 kg/m PM eter (2) Chief Complaint And Reason For Visit Unknown Chief Complaint And Reason For Visit Reason For Referral Reason For Referral Unknown Plan Of Care Date Type Action Status Goal Tobacco cessation counseling completed Goal Tobacco cessation counseling completed Appointment Pamella Grider BOOKED Appointment Pamella Grider - [facility] - BOOKED RC/S, PPTL Future Order: Lab Order Pap Smear With HPV Reflex If Ordered ASCUS (WPMPap1) Future Order: Radiology Order Nuchal Translucency ([id number]) Ordered Future Order: Radiology Order Complete OB Ultrasound > 14 Ordered Weeks ([id number]) Date Type Problem Goal Intervention Status Start [...]
--- OUTSIDE RECORDS SUMMARY | 2017-02-16 05:39 | External Medical Summary | Continuity of Care Document ---
:1990 Author Organization [facility] Address [address] [place], [place] [id number] Phone Care Team Providers Name Role Phone [facility] Unavailable Unavailable Allergies, Adverse Reactions, Alerts [...] third trimester 31 weeks gestation of - Recurrent loss Recurrent [...] third trimester 33 weeks gestation of - Depression Active Anxiety Disorder Active Procedures Procedure Date OB Visit No Charge Results Test Name Date and Time Measure Units Reference Range Abnormal Flag Comments Unknown Advance Directives Directive Yes / No Effective Date File Name Unknown Encounters Encounter Practice Location Reason(s) Diagnoses Date Provider Care Description For Visit Team Members Ashely Gao Supervision of Dec-3 Gilles In Womens other high risk 1-201 [place]. [facility] [employer] [place], pregnancies, third 7 Medical PO Box [id number] weeks Center 1522, gestation of Raymond Ortega, 120, [place], [place], [id number], [place], [place] [id number] tel:[phone] , [place]. tel: [phone] Ashely Gao Supervision of Dec-1 Gilles In Womens other high risk 7-201 [place]. [facility] [employer] [place], pregnancies, third 7 Medical PO Box [id number] weeks Center 1522, gestation of Raymond Ortega, 120, [place], [place], [id number], [place] [id number] tel:+[phone] , [place]. tel: [phone] Ashely Gao Supervision of Nov-2 Gilles In Womens other high risk 8-201 [place] [address] [employer] [place], pregnancies, third 7 Medical PO Box [email or web address] weeks Center 1522, gestation of Raymond Ortega, 120, [place], [place], [id number], [place], [place] [id number] tel:+[phone] , [place]. tel: [phone] Ashely Gao Previous Low Amilcar-2 Gilles In Womens Transverse 9-201 Mauri. 700 Health [place], [id number] weeks 7 Medical PO Box gestation of Center 1522, Raymond Ortega, 120, [place], [place], [id number], [place], [place] [id number] tel:+ , [place]. tel: [phone] Ashely Gao Supervision of Amilcar-0 Gilles In Womens other high risk 1-201 [place]. 700 Health [place], pregnancies, second 7 Medical PO Box [id number] weeks Center 1522, gestation of Raymond Ortega, 120, [place], [place], [id number], [place], [place] [id number] tel:+ , [place]. tel: [phone] [facility] [place] Previous Low Amilcar-0 Gilles In Womens Ultrasound Transverse 1-201 [place]. 700 Health [place], C-SectionPreg care 7 Medical PO Box for patient w recur Center 1522, preg loss, second Raymond Ortega, trimesterEncounter 120, [place], for [place], , screening of [place], [place] [id number] weeks tel:+ gestation of , [place]. tel: [phone] [facility] [place] Supervision of May-1 Gilles In Womens other high risk 1-201 [place]. 700 [facility] [place], pregnancies, second 7 Medical PO Box trimesterPrevious Center 1522, Low Transverse Raymond Ortega, [id number] weeks 120, [place], gestation of [place], , [place], [place] [id number] tel:+ , . tel: [phone] Ashely Gao Supervision of Apr-1 Gilles In Womens other high risk 3-201 [place]. 700 [facility] [place], pregnancies, first 7 Medical PO Box [id number] weeks Center 1522, gestation of Raymond Ortega, 120, [place], [place], [id number], [place], [place] [id number] tel:+ , . tel: [phone] Ashely Gao Supervision of Apr-1 Gl[place] In Womens Ultrasound other high risk 3-201 [place]. 700 [facility] [place], pregnancies, first 7 Medical PO Box trimesterPrevious Center 1522, Low Transverse Raymond Ortega, [id number] weeks 120, [place], gestation of [place], , [place], [place] tel: , . tel: [phone] [facility] [place] Supervision of Mar-2 Gilles In Womens other high risk - [place]. 700 [facility], pregnancies, first 7 Medical PO Box trimesterPrevious Center 1522, Low Transverse , Raymond Damon, C-SectionPreg care 120, [place], for patient w [place], , recurrent preg [place], [place] loss, first tel: trimesterPap Smear , [place]. Screening, [id number] tel: weeks gestation of [phone] [facility] [place] Secondary Mar-0 Gilles In Womens amenorrhea 9- [place]. 700 [facility], 7 Medical PO Box Center 1522, Raymond Ortega, 120, [place], [place], , [place], [place] tel: , . tel: [phone] [facility] Secondary Feb-2 Gilles In Womens amenorrhea 3- [place]. 700 [facility], 7 Medical PO Box Center 1522, Raymond Ortega, 120, [place], [place], , [place], [place] [id number] tel: , [place]. tel: [phone] [facility] Secondary Feb-1 Gilles In Womens amenorrhea 7- [place]. 700 [facility], 7 Medical PO Box Center 1522, Raymond Ortega, 120, [place], [place], , [place], [place] [id number] tel: , . tel: [phone] [facility] Complete or unsp Sahil-1 Gilles In Womens spontaneous 3- [place]. 700 [facility], without 7 Medical PO Box complication Center 1522, Raymond Ortega, 120, [place], [place], , [place], [place] [id number] tel: , . tel: [phone] Ashely Gao Recurrent Sahil-1 [place] In Womens loss 2-201 [facility]. Health [place], 7 700 PO Box Medical 1522, Center Dr Marisol, Raymond [place], 120, [id number], [place], [place], tel:[phone] , [place]. tel:+[phone] [facility] Recurrent Mendiola In Womens lossRecurrent 1-201 Roxy. Health [place], 7 700 PO Box lossEncounter for Medical 1522, test, [place], result Raymond Ortega, positiveEncounter 120, [id number], for test, [place], [place] result positive [place], tel:[phone] , [place]. tel: [phone] [facility] Nicotine Gilles In Womens dependence, Mauri. 700 Health [place], cigarettes, 6 Medical PO Box uncomplicatedRecurr Center 1522, ent Raymond Ortega, lossPap Smear 120, [place], Screening, [place], [id number], CervixEncounter for [place], [place] test, tel:+2 result negative , [place]. tel: [phone] Family History Family Member Diagnosis Age At Onset Paternal Grandfather Cardiovascular Disease Father Cardiovascular Disease Immunizations Vaccine Date Status Comments Unknown Payers Payer name Insurance type Covered alliance party ID Authorization(s) [employer] [place] - Medicaid MC [id number] Social History Type Description Quantity Date Captured Alcohol Use Details No Caffeine Use Details Unknown Tobacco Use Status Smoking Status Current every day smoker Vital Signs Date / Height Weight BMI Pulse Blood Temperature Respiratory Body Head BMI Time: Rate Pressure Rate Surface Circumference percentile Area 177.50 30.1 lbs 8 mm[Hg] 1:43 kg/m PM eter (2) Chief Complaint And Reason For Visit Unknown Chief Complaint And Reason For Visit Reason For Referral Reason For Referral Unknown Plan Of Care Date Type Action Status Goal Tobacco cessation counseling completed Goal Tobacco cessation counseling completed Appointment Pamella Grider BOOKED Appointment Pamella Grider - [facility] [place] BOOK[place] RC/S, PPTL Future Order: Lab Order Pap Smear With HPV Reflex If Ordered ASCUS (WPMPap1) Future Order: Radiology Order Nuchal Translucency ([id number]) Ordered Future Order: Radiology Order Complete OB Ultrasound > 14 Ordered Weeks ([id number]) Date Type Problem Goal Intervention Status Start [...]
--- OUTSIDE RECORDS SUMMARY | 2017-02-16 05:39 | External Medical Summary ---
:1990 Author Organization [employer] Care Team Providers Name Role Phone Hetal Nia Provider Role Unavailable Allergies No Known Allergies Problems No Known Problems Medications Medication Code Code Instructions Start End Date Status Dosage System Date Escitalopram [facility] 87728-07 20 MG Orally Jan 02, 0.5 tablet Oxalate 52-01 Once a day 2015 Results No Known Results Summary Purpose [employer] Submission
--- OUTSIDE RECORDS SUMMARY | 2017-02-16 05:39 | External Medical Summary | Continuity of Care Document ---
:1990 Author Organization [facility] Address [address] [place], [place] [id number] Phone Care Team Providers Name Role Phone [facility] Unavailable Unavailable Allergies, Adverse Reactions, Alerts Substance Reaction Severity Status No Known Drug Allergies Unknown Active Medications Medication Instructions Dosage Effective Dates Status Comments (start - stop) Vitamin take 1 tablet by Not Available - Active tablet oral route every day clindamycin 300 take 1 capsule by 300 MG - No Longer mg capsule ORAL route 2 times Active every day for 7 days Problems Condition Effective Dates (start - stop) Clinical Status Supervision of other high risk - pregnancies, third trimester 35 weeks gestation of - Recurrent loss Recurrent loss Encounter for test, result - positive Encounter for test, result positive Nicotine dependence, cigarettes, uncomplicated Recurrent loss Encounter for test, result - negative Pap Smear Screening, Cervix - 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 Complete or unsp spontaneous without complication Supervision of other high risk - pregnancies, first trimester Preg care for patient w recurrent preg - loss, first trimester Previous Low Transverse - 10 weeks gestation of - Pap Smear Screening, Cervix - Supervision of other high risk - [...] third trimester 31 weeks gestation of - Supervision of other high risk - pregnancies, third trimester 28 weeks gestation of - Supervision of other high risk - pregnancies, third trimester 33 weeks gestation of - Supervision of other high risk - pregnancies, third trimester Encounter for screening of - mother 37 weeks gestation of - Preg care for patient w recur preg - loss, second trimester Previous Low Transverse - 20 weeks gestation of - Encounter for screening of - mother Previous Low Transverse - 24 weeks gestation of - Depression Active Anxiety Disorder Active Procedures Procedure Date Immuniz admnin, 1 vac, sngl/combo 19 Yrs + TDAP VACCINE >7 IM OB Visit No Charge Results Test Name Date and Time Measure Units Reference Range Abnormal Flag Comments Unknown Advance Directives Directive Yes / No Effective Date File Name Unknown Encounters Encounter Practice Location Reason(s) Diagnoses Date Provider Care Team Description For Visit Members Ashely Gao Supervision of Jan-2 Gilles Referring In Womens other high risk 8-201 [place]. [facility] Provider: Health [place], pregnancies, 7 Medical [facility] Gilles R, 1522, trimesterEncounte , Raymond 700 tana Damon for 120, Medical [place], screening of Betty Gao Dr [id number], [id number] weeks [place], Raymond 120, [place] gestation of [id number] [place], tel: , [place]. [place], tel: [phone]. [id number] tel:[phone] Ashely Gao Supervision of Jan-1 Gilles Referring In Womens other high risk 4-201 [place]. 700 Provider: Health [place], pregnancies, 7 Medical Mauri [address] Box third [id number] Center Gilles R, 1522, weeks gestation Raymond Ortega, of 120, Medical [place], [place]ao, [place] [id number], [place], [facility] 120, [place] [id number] [place], tel:+ , [place]. [place], tel:[phone]. [id number] tel:[phone] Ashely Gao Supervision of Aug-3 Gilles In Womens other high risk 1-201 Mauri. 700 Health [place], pregnancies, 7 Medical PO Box third [id number] Center 1522, weeks gestation Raymond Ortega, of 120, [place], [place], [id number], [place] [id number] tel: , [place]. tel: [phone] Ashely Gao Supervision of Aug-1 Gilles In Womens other high risk 7-201 Mauri. 700 Health [place], pregnancies, 7 Medical PO Box third [id number] Center 1522, weeks gestation Raymond Ortega, of 120, [place], [place], [id number], [place] [id number] tel: , [place]. tel: [phone] Ashely Gao Supervision of Lalo-2 Gilles In Womens other high risk 8-201 [place]. 700 Health [place], pregnancies, 7 Medical PO Box third [email or web address] Center 1522, weeks gestation Raymond Ortega, of 120, [place], [place], [id number], [place], [place] [id number] tel: , [place]. tel: [phone] Ashely Gao Previous Low Amilcar-2 Gilles In Womens Transverse 9-201 Freeman. 700 Health [place], [id number] weeks 7 Medical PO Box gestation of Center 1522, Raymond Ortega, 120, [place], [place], [id number], [place], [place] [id number] tel: , [place]. tel: [phone] Ashely Gao Supervision of Amilcar-0 Gilles In Womens other high risk 1-201 Mauri. 700 Health [place], pregnancies, 7 Medical PO Box second Center 1522, [id number] weeks Raymond Ortega, gestation of 120, [place], [place], [id number], [place], [place] [id number] tel:+ , [place]. tel: [phone] Ashely Gao Preg care for Amilcar-0 Gilles In Womens Ultrasound patient w recur 1-201 Mauri. 700 Health [place], preg loss, second 7 Medical PO Box trimesterPrevious Center 1522, Low Transverse Raymond Ortega, [id number] weeks 120, [place], gestation of Gao, [id number], pregnancyEncounte [place], [place] r for tel: screening of , [place]. mother tel: [phone] Ashely Gao Supervision of May-1 Gilles In Womens other high risk 1-201 Mauri. 700 Health [place], pregnancies, 7 Medical PO Box second Center 1522, trimesterPrevious Raymond Ortega, Low Transverse 120, [place], [id number] weeks Gao, , gestation of [place], [place] [id number] tel:+ , [place]. tel: [phone] Ashely Gao Supervision of Apr-1 Gilles In Womens other high risk 3-201 Mauri. 700 Health [place], pregnancies, 7 Medical PO Box first [email or web address] Center 1522, weeks gestation Raymond Ortega, of 120, [place], [place], [id number], [place] [id number] tel:+ , [place]. tel: [phone] Ashely Gao Supervision of Apr-1 Gilles In Womens Ultrasound other high risk 3-201 Mauri. 700 Health [place], pregnancies, 7 Medical PO Box first Center 1522, trimesterPrevious Raymond Ortega, Low Transverse 120, [place], [id number] weeks Gao, [id number], gestation of [place] [id number] tel:+ , [place]. tel: [phone] Ashely Gao Supervision of Mar-2 Gilles In Womens other high risk 3-201 Mauri. 700 Health [place], pregnancies, 7 Medical PO Box first Center 1522, trimesterPreg Raymond Ortega, care for patient 120, [place], w recurrent preg Gao, , loss, first [place], [place] trimesterPrevious tel: Low Transverse , [place]. [id number] weeks tel: gestation of [id number] pregnancyPap Smear Screening, C[facility]ix [facility] Secondary Mar-0 Gilles In Womens amenorrhea 9-201 [place]. 700 Health [place], 7 Medical PO Box Center 1522, , Raymond Damon, 120, [place], [place], , [place], [place] tel: , [place]. tel: [phone] [facility] [place] Secondary Feb-2 Gilles In Womens amenorrhea 3-201 Freeman. 700 [facility], 1928–1983, 7 Medical PO Box Center 1522, , Raymond Damon, 120, [place], [place], , [place], [place] tel: , [place]. tel: [phone] [facility] [place] Secondary Feb-1 Gilles In Womens amenorrhea 7-201 Freeman. 700 [facility], 1928–1983, 7 Medical PO Box Center 1522, , Raymond Damon, 120, [place], [place], , [place], [place] tel: , [place]. tel: [phone] [facility] Complete or unsp Sahil-1 Gilles In Womens spontaneous 3-201 [place]. 700 [facility], 1928–1983, without 7 Medical PO Box complication Center 1522, Raymond Ortega, 120, [place], [place], , [place], [place] tel: , [place]. tel: [phone] [facility] Recurrent Sahil-1 [place] In Womens loss 2-201 Roxy. Health [place], 7 700 PO Box Medical 1522, Betty Damon Dr, Raymond HERNANDEZ, 120, [id number], [place], [place], tel:901 , [place]. tel: [phone] [facility] Recurrent Sahil-1 [place] In Womens 1-201 Roxy. Health [place], lossRecurrent 7 700 PO Box Medical 1522, lossEncounter for Center Marisol, test, , Raymond HERNANDEZ, result 120, , positiveEncounter [place] for [place], tel: test, result [id number] positive , [place]. tel: [phone] [facility] Nicotine Gilles In Womens dependence, 2-201 [place]. [facility] [place], cigarettes, 6 [facility], rrent Raymond Ortega, lossEncounter for 120, [place], test, [place], [id number], result [place], [place] negativePap Smear [id number] tel: Screening, Cervix , [place]. tel: [phone] Family History Family Member Diagnosis Age At Onset Paternal Grandfather Cardiovascular Disease Father Cardiovascular Disease Immunizations Vaccine Date Status Comments Influenza, injectable, completed Source: New Immunization Record quadrivalent, preservative free, 3 yrs or older Tdap completed Source: New Immunization Record Payers Payer name Insurance type Covered alliance party ID Authorization(s) [employer] [place] Medicaid MC [id number] [employer] [place] Medicaid MC [id number] Social History Type Description Quantity Date Captured Alcohol Use Details No Caffeine Use Details Unknown Tobacco Use Status Smoking Status Current every day smoker Vital Signs Date / Height Weight BMI Pulse Blood Temperature Respiratory Body Head BMI Time: Rate Pressure Rate Surface Circumference percentile Area 180.20 30.6 123/74 -2017 lbs 4 mm[Hg] 8:53 kg/m AM eter (2) Chief Complaint And Reason For Visit Unknown Chief Complaint And Reason For Visit Reason For Referral Reason For Referral Unknown Plan Of Care Date Type Action Status Goal Tobacco cessation counseling completed Goal Tobacco cessation counseling completed Appointment Pamella Grider BOOKED Appointment Pamella Grider - [facility] [place] BOOKED RC/S, PPTL Future Order: Lab Order Pap Smear With HPV Reflex If Ordered ASCUS ([id number]) Future Order: Radiology Order Nuchal Translucency ([id number]) Ordered Future Order: Radiology Order Complete OB Ultrasound > 14 Ordered Weeks ([id number]) Date Type Problem Goal Intervention Status Start [...]
--- OUTSIDE RECORDS SUMMARY | 2017-02-16 05:39 | External Medical Summary ---
:1990 Author Organization [employer] Care Team Providers Name Role Phone Nia Fong Provider Role Unavailable Allergies No Known Allergies Problems Problem Type Condition Code Onset Dates Condition Status Assessment Spotting N92.0 Active Assessment Positive test Z32.01 Active Medications Medication Code System Code Instructions Start Date End Date Status Dosage [facility] 03174-391 Orally daily not defined Vitamins Plus 6-01 Procedures Procedure Coding System Code Date COMPREHENSIVE METABOLIC PANEL CPT-4 07078 Dec 09, 2015 HCG QUANTITATIVE CPT-4 10443 Dec 09, 2015 COMPLETE CBC W/AUTO DIFF WBC CPT-4 36081 Dec 09, 2015 TSH CPT-4 68609 Dec 09, 2015 Results Name Result Date Reference Range Unit Abnormality Flag HCG Quantitative ----HCG Quantitative 59 [id number] mIU/mL Summary Purpose [employer] Submission
--- OUTSIDE RECORDS SUMMARY | 2017-02-16 05:39 | External Medical Summary ---
:1990 Author Organization [employer] Care Team Providers Name Role Phone iMndy Vizcaino Provider Role Unavailable Allergies, Adverse Reactions, Alerts Substance Reaction Event Type N.K.D.A. Info Not Available Non Drug Allergy Problems Problem Type Condition Code Onset Dates Condition Status Assessment Other specified related O26.891 Active conditions, first trimester Assessment Vaginal bleeding before 22 weeks O20.9 Active gestation Assessment Pelvic and perineal pain R10.2 Active Medications Medication Code System Code Instructions Start Date End Date Status Dosage [facility] 42751-613 Orally daily not defined Vitamins Plus 6-01 Procedures Procedure Coding System Code Date OFFICE VISIT, EST-LOW COMPLEXITY (15 MIN.) CPT-4 70181 Dec 16, 2015 Vital Signs Date/Time: Dec 16, 2015 Temperature 98.8 F Height 63 in Weight 127.4 lbs Blood Pressure Diastolic 70 mm Hg Blood Pressure Systolic 104 mm Hg Cardiac Monitoring Heart Rate 72 /min BMI 22.57 Index Respiratory Rate 16 /min Results No Known Results Summary Purpose [employer] Submission
--- OUTSIDE RECORDS SUMMARY | 2017-02-16 05:39 | External Medical Summary | Referral Summary ---
:1990 Author Organization [facility] Address [address] [place] [address] [place] [address] Care Team Providers Name Role Phone No PCP, States Primary Care Physician Encounter VC Date(s): 07/23/15 - 07/23/15 [facility] [place] [address] [place] Discharge Disposition: 01-Home or Self Care Attending Physician: Vijay Yoo MD Admitting Physician: Vijay Yoo MD Vital Signs Most recent to oldest [Reference Range]: 1 Temperature Tympanic [36.6-38.1 degC] 35.8 degC *LOW* (07/23/15 3:20 PM) Blood Pressure [90-140/60-90 mmHg] 112/76 mmHg (07/23/15 3:20 PM) Problem List Condition Effective Dates Status Health Status Informant ADD(Confirmed) Active Anxiety(Confirmed) Active Depression(Confirmed) Active Current smoker(Confirmed) Active Allergies, Adverse Reactions, Alerts No Known Medication Allergies Medications CeleXA 40 mg oral tablet 40 mg 1 tabs, Oral, Daily, # 60 tabs, 0 Refill(s), Pharmacy: [id number], 1 tabs Oral Daily Start Date: 07/23/15 Status: Ordered Results No data available for this section Immunizations Vaccine Date Refusal Reason influenza virus vaccine, live 02/03/13 Procedures No data available for this section Social History Social History Type Response Smoking Status Current every day smoker Assessment and Plan Extracted from: Title: Ambulatory Patient Education Author: Vijay Yoo MD Date: Behavioral Health Panic Attacks Panic attacks are sudden, short-livedsurges of severe anxiety, fear, or discomfort. They may occur for no reason when you are relaxed, when you are anxious, or when you are sleeping. Panic attacks may occur for a number of reasons: Healthy people occasionally have panic attacks in extreme, life- threatening situations, such as war or natural disasters. Normal anxiety is a protective mechanism of the body that helps us react to danger (fight or flight response). Panic attacks are often seen with anxiety disorders, such as panic disorder, social anxiety disorder, generalized anxiety disorder, and phobias. Anxiety disorders cause excessive or uncontrollabl e anxiety. They may interfere with your relationships or other life activities. Panic attacks are sometimes seen with other mental illnesses, such as depression and posttraumatic stress disorder. Certain medical conditions, prescription medicines, and drugs of abuse can cause panic attacks. SYMPTOMS Panic attacks start suddenly, peak within 20 minutes, and are accompanied by four or more of the following symptoms: Pounding heart or fast heart rate (palpitations). Sweating. Trembling or shaking. Shortness of breath or feeling smothered. Feeling choked. Chest pain or discomfort. Nausea or strange feeling in your stomach. Dizziness, light-headedness, or feeling like you will faint. Chills or hot flushes. Numbness or tingling in your lips or hands and feet. Feeling that things are not real or feeling that you are not yourself. Fear of losing control or going crazy. Fear of dying. Some of these symptoms can mimic serious medical conditions. For example, you may think you are having a heart attack. Although panic attacks can be very scary, they are not life threatening. DIAGNOSIS Panic attacks are diagnosed through an assessment by your health care provider. Your health care provider will ask questions about your symptoms, such as where and when they occurred. Your health care p karlie will also ask about your medical history and use of alcohol and drugs, including prescription medicines. Your health care provider may order blood tests or other studies to rule out a serious me dical condition. Your health care provider may refer you to a mental health professional for further evaluation. TREATMENT Most healthy people who have one or two panic attacks in an extreme, life-threatening situation will not require treatment. The treatment for panic attacks associated with anxiety disorders or other mental illness typically involves counseling with a mental health professional, medicine, or a combination of both. Your health care provider will help determine what treatment is best for you. Panic attacks due to physical illness usually go away with treatment of the illness. If prescription medicine is causing panic attacks, talk with your health care provider about stopping the medi cine, decreasing the dose, or substituting another medicine. Panic attacks due to alcohol or drug abuse go away with abstinence. Some adults need professional help in order to stop drinking or using drugs. HOME CARE INSTRUCTIONS Take all medicines as directed by your health care provider. Schedule and attend follow-up visits as directed by your health care provider. It is important to keep all your appointments. SEEK MEDICAL CARE IF: You are not able to take your medicines as prescribed. Your symptoms do not improve or get worse. SEEK IMMEDIATE MEDICAL CARE IF: You experience panic attack symptoms that are different than your usual symptoms. You have serious thoughts about hurting yourself or others. You are taking medicine for panic attacks and have a serious side effect. MAKE SURE YOU: Understand these instructions. Will watch your condition. Will get help right away if you are not doing well or get worse. This information is not intended to replace advice given to you by your health care provider. Make sure you discuss any questions you have with your health care provider. Document Released: 04/23/2006 Document Revised: 04/28/2014 Document Reviewed: 12/05/2013 [facility] Patient Information 2015 [facility]. Family Medicine Smoking Cessation Quitting smoking is important to your health and has many advantages. However, it is not always easy to quit since nicotine is a very addictive drug. Oftentimes, people try 3 times or more before being able to quit. This document explains the best ways for you to prepare to quit smoking. Quitting takes hard work and a lot of effort, but you can do it. ADVANTAGES OF QUITTING SMOKING You will live longer, feel better, and live better. Your body will feel the impact of quitting smoking almost immediately. Within 20 minutes, blood pressure decreases. Your pulse returns to its normal level. After 8 hours, carbon monoxide levels in the blood return to normal. Your oxygen level increases. After 24 hours, the chance of having a heart attack starts to decrease. Your breath, hair, and body stop smelling like smoke. After 48 hours, damaged nerve endings begin to recover. Your sense of taste and smell improve. After 72 hours, the body is virtually free of nicotine. Your bronchial tubes relax and breathing becomes easier. After 2 to 12 weeks, lungs can hold more air. Exercise becomes easier and circulation improves. The risk of having a heart attack, stroke, cancer, or lung disease is greatly reduced. After 1 year, the risk of coronary heart disease is cut in half. After 5 years, the risk of stroke falls to the same as a nonsmoker. After 10 years, the risk of lung cancer is cut in half and the risk of other cancers decreases significantly. After 15 years, the risk of coronary heart disease drops, usually to the level of a nonsmoker. If you are , quitting smoking will improve your chances of having a healthy baby. The people you live with, especially any children, will be healthier. You will have extra money to spend on things other than cigarettes. QUESTIONS TO THINK ABOUT BEFORE ATTEMPTING TO QUIT You may want to talk about your answers with your health care provider. Why do you want to quit? If you tried to quit in the past, what helped and what did not? What will be the most difficult situations for you after you quit? How will you plan to handle them? Who can help you through the tough times? Your family? Friends? A health care provider? What pleasures do you get from smoking? What ways can you still get pleasure if you quit? Here are some questions to ask your health care provider: How can you help me to be successful at quitting? What medicine do you think would be best for me and how should I take it ? What should I do if I need more help? What is smoking withdrawal like? How can I get information on withdrawal ? GET READY Set a quit date. Change your environment by getting rid of all cigarettes, ashtrays, matches, and lighters in your home, car, or work. Do not let people smoke in your home. Review your past attempts to quit. Think about what worked and what did not. GET SUPPORT AND ENCOURAGEMENT You have a better chance of being successful if you have help. You can get support in many ways. Tell your family, friends, and coworkers that you are going to quit and need their support. Ask them not to smoke around you. Get individual, group, or telephone counseling and support. Programs are available at local hospitals and health centers. Call your local health department for information about programs in your area. Spiritual beliefs and practices may help some smokers quit. Download a "quit meter" on your computer to keep track of quit statistics, such as how long you have gone without smoking, cigarettes not smoked, and money saved. Get a self-help book about quitting smoking and staying off tobacco. LEARN NEW SKILLS AND BEHAVIORS Distract yourself from urges to smoke. Talk to someone, go for a walk, or occupy your time with a task. Change your normal routine. Take a different route to work. Drink tea instead of coffee. Eat breakfast in a different place. Reduce your stress. Take a hot bath, exercise, or read a book. Plan something enjoyable to do every day. Reward yourself for not smoking. Explore interactive web-based programs that specialize in helping you quit. GET MEDICINE AND USE IT CORRECTLY Medicines can help you stop smoking and decrease the urge to smoke. Combining medicine with the above behavioral methods and support can greatly increase your chances of successfully quitting smoking. Nicotine replacement therapy helps deliver nicotine to your body without the negative effects and risks of smoking. Nicotine replacement therapy includes nicotine gum, lozenges, inhalers, nasal s prays, and skin patches. Some may be available [id number] and others require a prescription. Antidepressant medicine helps people abstain from smoking, but how this works is unknown. This medicine is available by prescription. Nicotinic receptor partial agonist medicine simulates the effect of nicotine in your brain. This medicine is available by prescription. Ask your health care provider for advice about which medicines to use and how to use them based on your health history. Your health care provider will tell you what side effects to look out for if you c hoose to be on a medicine or therapy. Carefully read the information on the package. Do not use any other product containing nicotine while using a nicotine replacement product. RELAPSE OR DIFFICULT SITUATIONS Most relapses occur within the first 3 months after quitting. Do not be discouraged if you start smoking again. Remember, most people try several times before finally quitting. You may have symptoms of withdrawal because your body is used to nicotine. You may crave cigarettes, be irritable, feel very hungry, cough often, get headaches, or have difficulty concentrating. The withdrawal symptoms are only temporary. They are strongest when you first quit, but they will go away within 1014 days. To reduce the chances of relapse, try to: Avoid drinking alcohol. Drinking lowers your chances of successfully quitting. Reduce the amount of caffeine you consume. Once you quit smoking, the amount of caffeine in your body increases and can give you symptoms, such as a rapid heartbeat, sweating, and anxiety. Avoid smokers because they can make you want to smoke. Do not let weight gain distract you. Many smokers will gain weight when they quit, usually less than 10 pounds. Eat a healthy diet and stay active. You can always lose the weight gained after you quit. Find ways to improve your mood other than smoking. FOR MORE INFORMATION www.smokefree.gov This information is not intended to replace advice given to you by your health care provider. Make sure you discuss any questions you have with your health care provider. Document Released: 04/17/2002 Document Revised: 09/07/2014 Document Reviewed: 08/01/2012 [employer] Patient Information 2015 [facility]. Depression Depression refers to feeling sad, low, down in the dumps, blue, gloomy, or empty. In general, there are two kinds of depression: 1.Normal sadness or normal grief. This kind of depression is one that we all feel from time to time after upsetting life experiences, such as the loss of a job or the ending of a relationship. This kind of depression is considered normal, is short lived, and resolves within a few days to 2 weeks. Depression experienced after the loss of a loved one ( bereavement) often lasts longer than 2 weeks but normally gets better with time. 2.Clinical depression. This kind of depression lasts longer than normal sadness or normal grief or interferes with your ability to function at home, at work, and in school. It also interferes with y our personal relationships. It affects almost every aspect of your life. Clinical depression is an illness. Symptoms of depression can also be caused by conditions other than those mentioned above, such as: Physical illness. Some physical illnesses, including underactive thyroid gland (hypothyroidism), severe anemia, specific types of cancer, diabetes, uncontrolled seizures, heart and lung problems, strokes, and chronic pain are commonly associated with symptoms of depression. Side effects of some prescription medicine. In some people, certain types of medicine can cause symptoms of depression. Substance abuse. Abuse of alcohol and illicit drugs can cause symptoms of depression. SYMPTOMS Symptoms of normal sadness and normal grief include the following: Feeling sad or crying for short periods of time. Not caring about anything (apathy). Difficulty sleeping or sleeping too much. No longer able to enjoy the things you used to enjoy. Desire to be by oneself all the time (social isolation). Lack of energy or motivation. Difficulty concentrating or remembering. Change in appetite or weight. Restlessness or agitation. Symptoms of clinical depression include the same symptoms of normal sadness or normal grief and also the following symptoms: Feeling sad or crying all the time. Feelings of guilt or worthlessness. Feelings of hopelessness or helplessness. Thoughts of suicide or the desire to harm yourself (suicidal ideation). Loss of touch with reality (psychotic symptoms). Seeing or hearing things that are not real (hallucinations) or having false beliefs about your life or the people around you (delusions and paranoia). DIAGNOSIS The diagnosis of clinical depression is usually based on how bad the symptoms are and how long they have lasted. Your health care provider will also ask you questions about your medical history and subs tance use to find out if physical illness, use of prescription medicine, or substance abuse is causing your depression. Your health care provider may also order blood tests. TREATMENT Often, normal sadness and normal grief do not require treatment. However, sometimes antidepressant medicine is given for bereavement to ease the depressive symptoms until they resolve. The treatment for clinical depression depends on how bad the symptoms are but often includes antidepressant medicine, counseling with a mental health professional, or both. Your health care provider pilar l help to determine what treatment is best for you. Depression caused by physical illness usually goes away with appropriate medical treatment of the illness. If prescription medicine is causing depression , talk with your health care provider about stopp ing the medicine, decreasing the dose, or changing to another medicine. Depression caused by the abuse of alcohol or illicit drugs goes away when you stop using these substances. Some adults need professional help in order to stop drinking or using drugs. SEEK IMMEDIATE MEDICAL CARE IF: You have thoughts about hurting yourself or others. You lose touch with reality (have psychotic symptoms). You are taking medicine for depression and have a serious side effect. FOR MORE INFORMATION National [place] on Mental Illness: www.mirna.org National [place] of Mental Health: www.nimh.nih.gov This information is not intended to replace advice given to you by your health care provider. Make sure you discuss any questions you have with your health care provider. Document Released: 04/20/2001 Document Revised: 09/07/2014 Document Reviewed: 07/22/2012 [employer] Patient Information 2015 [facility]. No follow up information was provided. Extracted from: Title: Office Visit Note Author: Vijay Yoo MD Date: 07/23/15 Assessment/Plan Anxiety Start celexa 40mg1/2 tab daily for four days then one tab daily as she had prozac 40mg in the past. Call report in 30 days or sooner prn. A work/school note was offered and deferred by the patient. Therapy offered and declined. Current smoker Smoking Cessation was discussed. The patient is welcome to f/ u for therapy or medication for smoking cessation at any time that they are willing to quit. Depression See above.Lab if not improving. WWE with LISSA. Orders: citalopram, 40 mg 1 tabs, Oral, Daily, # 60 tabs, 0 Refill(s), Pharmacy: [id number], 1 tabs Oral Daily
--- OUTSIDE RECORDS SUMMARY | 2017-02-16 05:39 | External Medical Summary ---
:1990 Author Organization [employer] Care Team Providers Name Role Phone Hetal Nia Provider Role Unavailable Allergies, Adverse Reactions, Alerts Substance Reaction Event Type N.K.D.A. Info Not Available Non Drug Allergy Problems Problem Type Condition Code Onset Dates Condition Status Assessment Anxiety disorder, unspecified F41.9 Active Assessment Dental abscess K04.7 Active Medications Medication Code Code Instructions Start End Date Status Dosage System Date Augmentin [facility] 17292-21 875-125 MG Jan 16, Jan 30, 1 tablet 86-12 Orally Twice a 2015 2015 day Vitamins NDC 76101-76 Orally daily not Plus 16-01 [place] [address]-34 20 MG Orally Jan 16, 1 capsule 56-01 Once a day 2015 in the morning Chlorhexidine [facility] 61192-40 0.12 % Jan 16, Mar 17, 15 ml Gluconate 01-16 Mouth/Throat BID 2015 2015 swish and spit Procedures Procedure Coding System Code Date OFFICE VISIT, EST-LOW COMPLEXITY (15 MIN.) CPT-4 36334 Jan 17, 2016 Vital Signs Date/Time: Jan 17, 2016 Temperature 98.2 F Height 63 in Weight 129 lbs Blood Pressure Diastolic 68 mm Hg Blood Pressure Systolic 120 mm Hg Cardiac Monitoring Heart Rate 78 /min BMI 22.85 Index Oximetry 98 % Respiratory Rate 16 /min Results No Known Results Summary Purpose [employer] Submission
--- OUTSIDE RECORDS SUMMARY | 2017-02-16 05:39 | External Medical Summary ---
:1990 Author Organization [employer] Care Team Providers Name Role Phone Nia Fong Provider Role Unavailable Allergies No Known Allergies Problems Problem Type Condition Code Onset Dates Condition Status Assessment Spotting N92.0 Active Assessment Positive test Z32.01 Active Medications Medication Code System Code Instructions Start Date End Date Status Dosage [facility] [address] Orally daily not defined Vitamins Plus 6-01 Procedures Procedure Coding System Code Date HCG QUANTITATIVE CPT-4 74458 Dec 15, 2015 Results Name Result Date Reference Range Unit Abnormality Flag HCG Quantitative ----HCG Quantitative 152 [id number] mIU/mL Summary Purpose eClinicalWorks Submission
--- OUTSIDE RECORDS SUMMARY | 2017-02-16 05:40 | External Medical Summary | Continuity of Care Document ---
:1990 Author Organization [facility] Allergies Active Description Code Type Severity Reaction Onset Reported/ Identified Relationship Clinical to Patient Status Yes No Known 23975 3 N/A N/A Drug 0 Allergies Medications Medication Packaging Start Date Stop Date Route Dosage Sig Capsule 03/28/2016 VIBRAMYCIN 6 take 1 capsule by ORAL route every 12 hours Tablet 07/06/2016 DICLEGIS 7 take 1 tablet by oral route every day in the morning, 1 tablet in the mid-afternoo n, and 2 tablets at bedtime Tablet 10/04/2016 CLOTRIMAZOLE 7 insert 1 bead per vaginal route every night at bedtime for 7 days Capsule 01/18/2017 CLINDAMYCIN HCL 7 take 1 capsule by ORAL route 2 times every day for 7 days Problems Date Dx Attending Type Code Diagnosis Diagnosed By Coded 02/05/2012 Garth ACEVEDO, Yee Sanchez W V22.1 SUPERVIS OTH NORMAL PREG 04/18/2012 Sebastien DO, A 655.73 DECR MOVEMNT Ellyn R ANTEPARTUM CONDITION OR COMPLICATION 04/24/2012 Sebastien DO, A 656.63 EXCESS FET Ellyn R GRTH-ANTEPART 07/02/2012 Sebastien DO, F 652.51 HIGH HEAD AT Ellyn R TERM-DELIV 07/02/2012 Sebastien DO, F 659.71 ABN DEL FET HT Ellyn R RT/RHYTHM,W OR W/O MENTION OF ANTEP 07/02/2012 Sebastien DO, F 661.01 PRIM UTERINE Ellyn R INERT-DELIV 07/02/2012 Sebastien DO, F 661.21 UTERINE INERT Ellyn R NEC-DELIV 07/02/2012 Sebastien BALDWIN, A V22.1 SUPERVIS OTH NORMAL Ellyn R PREG 07/02/2012 Sebastien BALDWIN, F V27.0 DELIVER-SINGLE Ellyn R LIVEBORN 08/17/2016 Mauri Campoverde O09.891 Supervision of other high risk pregnancies, first trimester 08/17/2016 Mauri Campoverde O34.211 Previous Low Transverse 08/17/2016 Mauri Campoverde Z3A.13 13 weeks gestation of 10/05/2016 Mauri Campoverde O26.22 Preg care for patient w recur preg loss, second trimester 10/05/2016 Mauri Campoverde O34.211 Previous Low Transverse 10/05/2016 Mauri Campoverde Z36 Encounter for screening of mother 10/05/2016 Mauri Campoverde Z3A.20 20 weeks gestation of 01/04/2017 Mauri Campoverde O09.893 Supervision of other high risk pregnancies, third trimester 01/04/2017 Mauri Campoverde Z3A.28 28 weeks gestation of Procedures Code Description Performed By Performed On Ellyn Crowe DO 07/02/2012 73.09 ARTIF RUPT MEMBRANES NEC LOW Ellyn Crowe DO R 07/02/2012 74.1 CERVICAL 08/17/2016 81629 Ultrasound, Nuchal Translucency Measurement 10/05/2016 28443 Ultrasnd exam of preg uterus, compl 12/01/2016 86923 Venpnctr fngr/heel/ear stick routne OB 12/01/2016 99122 Visit No Charge 12/01/2016 83800 Glucose test 12/01/2016 77267 Hematocrit blood count 12/01/2016 36015 Hemoglobin count, colorimetric Encounters ACCT No. Visit Discharge Status Pt. Type Provider Facility Loc./Unit Complaint Date/Time [id number] 12/19/2012 12/19/2012 DIS Emergency Daniel ACEVEDO, Owen CrockettEDS 3650 15:33:00 19:58:00 [facility] [id number] 07/02/2012 07/04/2012 DIS Inpatient Owen Crowe DO5WH [id number] 04:50:00 16:40:00 [facility] [id number] 06/29/2012 06/29/2012 DIS Emergency Owen Crowe DO2WOBED [id number] 10:29:00 12:10:00 [facility] [id number] 04/24/2012 04/24/2012 DIS Outpatient Owen Crowe DOJO [id number] 08:26:00 08:26:00 [facility] [id number] 04/18/2012 04/18/2012 DIS Emergency Sebastien Owen BALDWIN2WOBED [id number] 06:20:00 07:10:00 [facility] [id number] 03/29/2012 03/29/2012 DIS Emergency Sebastien Owen BALDWIN2WOBED [id number] 21:58:00 23:52:00 [facility] [id number] 02/05/2012 02/05/2012 DIS Outpatient Garth ACEVEDO, Owen CrockettJO [id number] 08:00:00 08:00:00 [facility] [id number] 01/18/2017 01/18/2017 CLS Outpatient Gilles, 08:45:00 23:59:59 Mauri Tiwari [id number] 01/04/2017 01/04/2017 CLS Outpatient Gilles, 13:30:00 23:59:59 Mauri Tiwari [id number] 12/21/2016 12/21/2016 CLS Outpatient Gilles, 13:30:00 23:59:59 Mauri Tiwari [id number] 12/11/2016 12/11/2016 CLS Outpatient Gilles, 15:13:00 23:59:59 Mauri Tiwari [id number] 12/01/2016 12/01/2016 CLS Outpatient Gilles, 13:45:00 23:59:59 Mauri Tiwari [id number] 11/26/2016 11/26/2016 CLS Outpatient Gilles, 22:33:00 23:59:59 Mauri Tiwari [id number] 11/02/2016 11/02/2016 CLS Outpatient Gilles, 14:30:00 23:59:59 Mauri Tiwari [id number] 10/05/2016 10/05/2016 CLS Outpatient Gilles, 11:30:00 23:59:59 Mauri Tiwari [id number] 10/05/2016 10/05/2016 CLS Outpatient Gilles, 11:15:00 23:59:59 Mauri Tiwari [id number] 10/04/2016 10/04/2016 CLS Outpatient Gilles, 11:54:00 23:59:59 Mauri Tiwari [id number] 09/14/2016 09/14/2016 CLS Outpatient Gilles, 10:00:00 23:59:59 Mauri Tiwari [id number] 08/17/2016 08/17/2016 CLS Outpatient Iglles, 08:45:00 23:59:59 Mauri Tiwari [id number] 08/17/2016 08/17/2016 CLS Outpatient Gilles, 08:15:00 23:59:59 Mauri Tiwari [id number] 07/27/2016 07/27/2016 CLS Outpatient Gilles, 09:45:00 23:59:59 Mauri Tiwari [id number] 07/13/2016 07/13/2016 CLS Outpatient Gilles, 08:30:00 23:59:59 Mauri Tiwari [id number] 07/06/2016 07/06/2016 CLS Outpatient Gilles, 09:16:00 23:59:59 Mauri Tiwari [id number] 07/04/2016 07/04/2016 CLS Outpatient Gilles, 16:00:00 23:59:59 Mauri Tiwari [id number] 06/29/2016 06/29/2016 CLS Outpatient Gilles, 16:00:00 23:59:59 Mauri Tiwari [id number] 06/28/2016 06/28/2016 CLS Outpatient Gilles, 08:34:00 23:59:59 Mauri Tiwari [id number] 06/24/2016 06/24/2016 CLS Outpatient Gilles, 16:59:00 23:59:59 Mauri Tiwari [id number] 06/23/2016 06/23/2016 CLS Outpatient Gilles, 14:30:00 23:59:59 Mauri Tiwari [id number] 05/19/2016 05/19/2016 CLS Outpatient Gilles, 11:37:00 23:59:59 Mauri Tiwari [id number] 05/18/2016 05/18/2016 CLS Outpatient Mendiola, 09:27:00 23:59:59 Roxy Pang [id number] 05/17/2016 05/17/2016 CLS Outpatient Mendiola, 14:00:00 23:59:59 Roxy Pang [id number] 05/17/2016 05/17/2016 CLS Outpatient Gilles, 11:14:00 23:59:59 Mauri Tiwari [id number] 04/05/2016 04/05/2016 CLS Outpatient Gilles, 09:01:00 23:59:59 Mauri Tiwari [id number] 03/28/2016 03/28/2016 CLS Outpatient Gilles, 14:30:00 23:59:59 Mauri Tiwari [id number] 02/01/2017 Document 10:40:00 Registrrayna on
[2017-02-16] MEDS ORDERED: CEFAZOLIN PREMIX (MC ONLY) 2 GM/50 ML BAG IV ONE (05:45)
[2017-02-16] MEDS ORDERED: CITRIC ACID/SODIUM CITRATE 30ml PO ONE (05:45)
[2017-02-16] MEDS ORDERED: FAMOTIDINE PB 20 MG/50 ML BAG IV ONE (05:45)
[2017-02-16] MEDS: LR 1,000 ML IV SCH ×2 (06:16→15:59)
[2017-02-16] MEDS ORDERED: EPHEDRINE 50mg/ml INJECTION ONE (06:57)
[2017-02-16] MEDS ORDERED: FentaNYL 100 MCG/2 ML INJECTION ONE (06:59)
[2017-02-16] MEDS: OXYTOCIN BOLUS BAG 30 UNIT/500 ML ML IV SCH ×2 (07:38→08:34)
--- NOTE | 2017-02-16 08:19 | Anesthesia Preoperative Report ---
Anesthesia Preoperative Record - Date and Time Date: 02/16/17 Preoperative Diagnosis: repeat c section/pptl Proposed Procedure: repeat NPO Since Date: 02/15/17 NPO Since Time: 23:00 Allergies/Adverse Reactions: Allergies Allergy/AdvReac Type Severity Reaction Status Date / Time No Known Allergies Allergy Unverified 03/11/16 18:15 - Vital Signs Vital Signs: Temperature 97.8 F 02/16/17 06:27 Pulse Rate 74 02/16/17 06:27 Respiratory Rate 16 02/16/17 06:27 Blood Pressure 107/62 02/16/17 06:27 Pulse Oximetry 100 02/16/17 06:27 - Medications Inpatient Medications: Current Medications Lactated Ringer's (Lactated Ringers) 1,000 mls @ 999 mls/hr IV .Q1H1M BEBETO Last Admin: 02/16/17 06:16 Dose: 999 mls/hr Home Medications: Home Medications Medication Instructions Recorded Confirmed Type Acetaminophen 650 mg PO Q6H PRN #0 12/06/15 02/07/17 History Amoxicillin Chewable [Amoxicillin 1 tab PO TID #30 tab 03/11/16 History Chewable Tab] Fluoxetine HCl [Prozac] 1 cap PO DAILY #0 cap 03/11/16 History Pnv No.95/Ferrous Fum/Folic AC 1 each PO DAILY 02/07/17 02/07/17 History [ Tablet] Is Patient on Beta Bandar?: No - Medical History Respiratory: DENIES: Asthma Cardiovascular: DENIES: Hypertension Gastrointestional: Reports: Gastroesophageal Reflux Disease Renal/Endocrine: DENIES: Diabetes Mellitus Type 2 Other History: Reports: Now DENIES: Anesthesia Reactions - Surgical History Reproductive Surgery/Treatment: Reports: Section Anesthesia Reactions: None Hx Family Anesthesia Reaction: No - Social History Smoking Status: Current every day smoker - Pertinent Findings Laboratory: CBC and BMP 02/16/17 06:09 - Physical Exam Respiratory Exam: Present: lungs clear Cardiovascular Exam: Present: regular rate and rhythm - Airway Assessment Mallampati Score: II TMD: 3 Fingerbreadths Neck Extension: good Teeth: poor dentation Overall Assessment: may be difficult mask vent, may be difficult intubation - ASA ASA Score: 2 - Plan Anesthesia: Neuroaxial Regional/Trunk Block: Spinal - Discussion Discussion: Discussed risks/options/alternatives of anesthesia and questions answered. Patient consents. Nursing pain assessment noted. Present for Discussion: spouse Attestation Statement: Prior to the delivery of any anesthetic medication, I examined the patient, developed the plan, obtained the patient's consent and discussed the risk and benefits of the procedure with the patient/guardian. - Additional Information Seen by Anesthesia: Yes
[2017-02-16] MEDS ORDERED: NALOXONE 2 MG/2 ML INJECTION PFS IVP PRN (08:20)
[2017-02-16] MEDS ORDERED: DiphenhydrAMINE 50 MG/ML INJECTION IVP PRN (08:20)
[2017-02-16] MEDS ORDERED: ONDANSETRON 4 MG/2 ML INJECTION IVP PRN (08:20)
[2017-02-16 09:03] VITALS: BMI 33.2
[2017-02-16] MEDS ORDERED: SALINE FLUSH 10ml SYRINGE IV PRN (09:28)
[2017-02-16] MEDS ORDERED: OXYTOCIN DRIP 30 UNIT/500 ML ML IV SCH (09:28)
[2017-02-16] MEDS ORDERED: CALCIUM CARBONATE Chewable 500mg TABLET PO PRN (09:28)
[2017-02-16] MEDS ORDERED: HYDROCORTISONE 2.5% CREAM 30gm RECTALLY PRN (09:28)
[2017-02-16] MEDS ORDERED: DiphenhydrAMINE 25 MG CAPSULE PO PRN (09:28)
[2017-02-16] MEDS ORDERED: HYDROMORPHONE PCA 30mg/30ml VIAL IV PRN (09:28)
[2017-02-16] MEDS ORDERED: SIMETHICONE 80 MG CHEWABLE TABLET PO PRN (09:28)
[2017-02-16] MEDS ORDERED: METOCLOPRAMIDE 10mg/2ml INJECTION IVP PRN (09:28)
[2017-02-16] MEDS ORDERED: ACETAMINOPHEN 500 MG TABLET PO PRN (09:28)
[2017-02-16] MEDS: D5LR 1,000 ML IV SCH ×2 (09:48→20:08)
--- NOTE | 2017-02-16 12:01 | Anesthesia Postoperative Note ---
- Date and Time Date: 02/16/17 Time: 11:10 - Status Patient Participated in Evaluation: Patient Participated in Person Vital Signs: Temperature 97.8 F 02/16/17 06:27 Pulse Rate 74 02/16/17 06:27 Respiratory Rate 16 02/16/17 06:27 Blood Pressure 107/62 02/16/17 06:27 Pulse Oximetry 100 02/16/17 06:27 Respiratory Function: Airway Patent Cardiovascular Function: Regular Pulse Mental Status: Alert and Oriented Pain Intensity: 2 Hydration: Taking PO Fluids Complications During Recover: None Apparent - Follow-Up Instructions Instructions: Per Surgeon
--- NOTE | 2017-02-16 15:34 | Operative Note ---
DATE OF SURGERY: 02/16/2017 PREOPERATIVE DIAGNOSES 1. 26-year-old white female, G7, P2 at 39.2 weeks gestational age. 2. Previous x 2. 3. Desires permanent sterilization. POSTOPERATIVE DIAGNOSIS Female infant, Apgars, 3012 g (Elma Callahan). PROCEDURE: Repeat low transverse section and modified Kaiden tubal ligation. EBL: 800 mL ANESTHESIA: Spinal. by Axel Acosta CRNA SURGEON: Mauri Campoverde MD GAS ENGINE MECHANIC: Shahab Weir, salesperson surgical appliances. COMPLICATIONS: None. DESCRIPTION OF PROCEDURE After adequate spinal anesthesia, the patient was prepped and draped in the left lateral decubitus position. A Pfannenstiel skin incision was made with a sharp knife In an ellipsoid fashion excising the old scari and carried down the fascia, which was incised transversely with the Gallardo scissors. The rectus fascia was bluntly and sharply dissected off the rectus muscle. The rectus muscle was divided, and the peritoneum was isolated, elevated, entered with the Metzenbaum scissors and extended cephalad and caudad. The bladder blade was then inserted. Then using a sharp knife, a transverse incision was made in the lower uterine segment above the bladder. This was extended with my fingers. A Female was delivered from the vertex position without difficulty. The infant was bulb suctioned after delivery and then again after delivery of the body. The cord was doubly clamped and cut. The infant was received by the charge nurse. The placenta was expressed manually and was intact. The uterus was then allowed to fall upon the external abdominal wall. The endometrial cavity was cleansed using moist lap sponges. The uterus was closed using 0-Monocryl in a running locking fashion. One additional figue of 8 suture was used to complete hemostais. Hemostasis was confirmed. The posterior cul-de-sac was cleansed of old blood clots and the tubes and ovaries were examined and found to be normal in size, shape and appearance. Our attention was then turned to tubal ligation. The right fallopian tube was isolated and then a mid-isthmic portion of the tube was grasped with the Sarita clamp, elevated and then a knuckle of the tube was ligated using 2-0 chromic. A Lauren clamp was passed through the meso of the tube and then the proximal and distal aspects of the knuckle of the tube were ligated using 2-0 silk. The knuckle of the tube was excised and sent to surgical pathology for lumen confirmation. This procedure was then repeated on the left side and hemostasis was confirmed. After hemostasis was again confirmed, the uterus was then carefully returned to the abdominal cavity. The abdomen was then closed in layers. The peritoneum was closed using 2-0 Vicryl in running nonlocking fashion. The fascia was closed using 0-Vicryl in a running nonlocking fashion bilaterally from the lateral aspects medially. Hemostasis was achieved with the subcutaneous tissue. [place]'s tissue was closed using 3-0 Vicryl to obliterate the space. The skin was closed using 3-0 undyed Vicryl in a subcuticular manner. The patient tolerated the procedure well and went to the recovery room in stable condition. Pad, sponge and needle counts were correct and urine postop was clear and free flowing. MTDD
[2017-02-16] MEDS: DOCUSATE CALCIUM 240 MG CAPSULE PO SCH (15:59)
[2017-02-16] MEDS: SIMETHICONE 80 MG CHEWABLE TABLET PO SCH ×2 (16:00→20:08)
[2017-02-16] MEDS: IBUPROFEN 800 MG TABLET PO PRN (20:08)
--- NOTE | 2017-02-16 21:12 | Progress Note ---
OB PP Progress Note Free Text - Date Date: 02/16/17 - Progress Note Progress Note: POD #0 vss af doing well no c/o cont routine PO care.
[2017-02-17] MEDS: IBUPROFEN 800 MG TABLET PO PRN ×3 (05:04→22:51)
[2017-02-17] MEDS: HYDROCODONE/APAP 5mg/325mg TABLET PO PRN ×5 (05:05→22:51)
--- NOTE | 2017-02-17 07:51 | OB/GYN Progress Note ---
OB-PP Progress Note - General POD:: POD1 Maternal Group B Strep: Negative Maternal blood type: O+ - Subjective Date: 02/17/17 Lochia: Minimal Pain: contolled Voiding: voiding Nausea or Vomiting Present: No - Objective Vital Signs: Last Vital Signs Temp 98.0 F 02/17/17 05:10 Pulse 81 02/17/17 05:10 Resp 16 02/17/17 05:10 BP 103/63 02/17/17 05:10 Pulse Ox 98 02/17/17 05:10 Urine Output: good General: alert and oriented Abdomen: fundus firm, non-tender, no guarding Incision: dry, dressed Extremities: non-tender Laboratory: Laboratory Results - last 24 hr 02/16/17 21:23 WBC 13.5 H RBC 3.58 L Hgb 10.4 L Hct 32.2 L MCV 89.9 MCH 29.1 MCHC 32.3 RDW Std Deviation 43.2 Plt Count 210 MPV 10.3 - Assessment Assessment: SP, Repeat C/S, Tubal Ligation - Plan Plan: routine care Expected date of discharge: 02/18/17
--- NOTE | 2017-02-17 08:00 | Discharge Instructions ---
Discharge Plan - Med Rec/Dispo Prescriptions: New Hydrocodone/APAP 5/325 [[place] 5/325] 1 - 2 tab PO Q4H PRN #30 tab PRN Reason: Pain Docusate Calcium [Surfak] 240 mg PO DAILY #30 cap Ibuprofen [Motrin] 800 mg PO Q8H PRN #40 tab PRN Reason: Pain Continue Fluoxetine HCl [Prozac] 1 cap PO DAILY #0 cap Acetaminophen 650 mg PO Q6H PRN #0 PRN Reason: PAIN Amoxicillin Chewable [Amoxicillin Chewable Tab] 1 tab PO TID #30 tab Clindamycin HCl 300 mg PO TID 10 Days #30 cap Pnv No.95/Ferrous Fum/Folic AC [ Tablet] 1 each PO DAILY
[2017-02-17] MEDS: SIMETHICONE 80 MG CHEWABLE TABLET PO SCH ×4 (08:19→22:51)
[2017-02-17] MEDS: D5LR 1,000 ML IV SCH (08:21)
[2017-02-17] MEDS: DOCUSATE CALCIUM 240 MG CAPSULE PO SCH (09:27)
[2017-02-17 18:33] VITALS: RESP 16
[2017-02-18] MEDS: SIMETHICONE 80 MG CHEWABLE TABLET PO SCH ×2 (03:04→08:37)
[2017-02-18] MEDS: HYDROCODONE/APAP 5mg/325mg TABLET PO PRN ×2 (06:36→10:49)
[2017-02-18] MEDS: IBUPROFEN 800 MG TABLET PO PRN (07:53)
[2017-02-18 07:57] VITALS: BP 125/67; PULSE 84; TEMP 98.4; O2SAT 97
[2017-02-18] MEDS: DOCUSATE CALCIUM 240 MG CAPSULE PO SCH (08:38)
== END 2017-02-18 12:27 | disposition home or self-care (01) | DRG 765 ==
LOC: MC 05:30
PROVIDERS: ADMIT Obstetrics & Gynecology; ATTEND Obstetrics & Gynecology